=== PATIENT | female | born 1960 | race African-American/Black ===

== ENCOUNTER 2017-06-19 09:33 | Emergency (ER) | payer MEDICAID, OTHER ==
[2017-06-19] MEDS ORDERED: NS 1000 ML 1,000 ML IV ONE ×2 (09:41→13:34)
[2017-06-19] MEDS ORDERED: ZOFRAN INJ 4 MG VIAL IVP ONE ×2 (09:41→12:09)
--- NOTE | 2017-06-19 09:45 | DR.NAUSEAF ---
HPI - Reviewed Nurses Notes Reviewed: Yes - Source History Provided: Parent - Mode of Arrival Mode of Arrival: Stretcher - Context Onset: Spontaneous Recent: None History of: Diabetes - Quality Quality: Bilious - Associated Signs and Symptoms Abdominal Pain Quality: Cramping Abdominal Pain Location: Diffuse Symptoms: Abdominal Pain, Diarrhea, Anorexia PMH - PMH Past Medical History: Asthma, Diabetes, GERD, Hypertension, Sleep Apnea Past Surgical History: Yes Surgical History: Hysterectomy - Family History Family Medical History: Diabetes Mellitus, Coronary Artery Disease, Hypertension - Social History Do you use any recreational Drugs:: No ROS - Review of Systems Constitutional: Weakness, Fatigue, Loss of Appetite. negative: Chills Eyes: No Symptoms Reported. negative: Eye Pain, Discharge ENTM: Ear Pain, Nose Discharge, Nose Congestion, Throat Pain Respiratoy: Moist Cough, Wheezing Cardiovascular: No Symptoms Reported Gastrointestinal/Abdominal: Vomiting (MAINLY MUCOUS) Genitourinary: No Symptoms Reported Neurological: No Symptoms Reported Musculoskeletal: No Symptoms Reported Integumentary: No Symptoms Reported Hematologic/Lymphatic: No Symptoms Reported Endocrine: No Symptoms Reported All Other Systems: Reviewed and Negative PE - Vital Signs Vitals: Temperature 96.9 F Pulse Rate [Left Brachial] 55 Pulse Rate 82 Respiratory Rate 18 Blood Pressure [Right Arm] 166/72 Blood Pressure [Left Arm] 181/83 Blood Pressure 146/72 O2 Sat by Pulse Oximetry 100 - General Limitations: No Limitations General Appearance: Alert - Head Head Exam: Normal Inspection - Eyes Eye exam: Normal Appearance - ENT ENT Exam: Normal External Ear Exam - Neck Neck Exam: Trachea Midline - Chest Chest Inspection: Symmetric Chest Wall Rise - Respiratory Respiratory Exam: Normal Lung Sounds Bilat Respiratory Exam: Bilateral Clear to Auscultation - Cardiovascular Cardiovascular Exam: Regular Rate, Normal Rhythm, Normal Heart Sounds - Abdominal Exam Abdominal Exam: Normal Bowel Sounds, Soft, Tenderness Abdominal Tenderness: Diffuse, Moderate - Rectal Rectal Exam: Deferred - External Exam: Female: Deferred : Speculum Exam (Female): Deferred : Bimanual Exam (female): Deferred - Extremities Extremities Exam: Normal Inspection - Back Back Exam: Normal Inspection - Neurologic Neurological Exam: Alert, Oriented X3 - Psychiatric Psychiatric Exam: Normal Affect, Normal Mood - Skin Skin Exam: Normal Color ROR - Labs Reviewed Result Diagrams: 06/19/17 10:00 06/19/17 10:00 Laboratory: 06/19/17 09:53 Stool - Final WBC 13.6 X10^3/uL (3.6-10.0) H 06/19/17 10:00 RBC 5.65 X10^6/uL (3.5-5.4) H 06/19/17 10:00 Hgb 14.4 g/dL (12.0-16.0) 06/19/17 10:00 Hct 44.4 % (36.0-47.0) 06/19/17 10:00 MCV 78.6 fL (80.0-100.0) L 06/19/17 10:00 MCH 25.5 pg (27.0-34.0) L 06/19/17 10:00 MCHC 32.5 g/dL (33.0-35.0) L 06/19/17 10:00 RDW 14.5 % (11.6-16.5) 06/19/17 10:00 Plt Count 195 X10^3/uL (150.0-450.0) 06/19/17 10:00 Plt Count Comment Adequate (ADEQUATE) 06/19/17 10:00 MPV 10.5 fL (7.4-11.0) 06/19/17 10:00 Neut % 77.9 % (42.0-75.0) H 06/19/17 10:00 Lymph % 16.9 % (21.0-51.0) L 06/19/17 10:00 Lamar % 4.2 % (0.0-13.0) 06/19/17 10:00 Eos % 0.3 % (0.9-2.9) L 06/19/17 10:00 Baso % 0.7 % (0.2-1.0) 06/19/17 10:00 Neut # 10.6 x10^3/uL (2.2-4.8) H 06/19/17 10:00 Lymph # 2.3 X10^3/uL (1.3-2.9) 06/19/17 10:00 Lamar # 0.6 x10^3/uL (0.3-0.8) 06/19/17 10:00 Eos # 0.0 x10^3/uL (0.0-0.2) 06/19/17 10:00 Baso # 0.1 X10^3/uL (0.0-0.1) 06/19/17 10:00 Absolute Nucleated RBC 0.0 /100WBC 06/19/17 10:00 Plt Morphology Comment Normal (NORMAL) 06/19/17 10:00 RBC Morphology Abnormal (NORMAL) A 06/19/17 10:00 Microcytosis Slight A 06/19/17 10:00 Sodium 142 mmol/L (136-145) 06/19/17 10:00 Corrected Sodium 145 mmol/L (136-145) 06/19/17 10:00 Potassium 3.2 mmol/L (3.5-5.1) L 06/19/17 10:00 Chloride 106 mmol/L (98-107) 06/19/17 10:00 Carbon Dioxide 23.6 mmol/L (21-32) 06/19/17 10:00 BUN 38 mg/dL (7-18) H 06/19/17 10:00 Creatinine 1.40 mg/dL (0.55-1.02) H 06/19/17 10:00 Est GFR (MDRD) Af Amer 50 (>60) L 06/19/17 10:00 Est GFR (MDRD) Non-Af 42 (>60) L 06/19/17 10:00 Glucose 219 mg/dL (65-99) H 06/19/17 10:00 Calcium 9.3 mg/dL (8.5-10.1) 06/19/17 10:00 Corrected Calcium TNP 06/19/17 10:00 Total Bilirubin 0.50 mg/dL (0.2-1.0) 06/19/17 10:00 AST 13 Units/L (15-37) L 06/19/17 10:00 ALT 17 Units/L (12-78) 06/19/17 10:00 Alkaline Phosphatase 114 Units/L (46-116) 06/19/17 10:00 Total Protein 8.1 g/dL (6.4-8.2) 06/19/17 10:00 Albumin 3.7 g/dL (3.4-5.0) 06/19/17 10:00 Globulin 4.4 g/dL (2.5-4.5) 06/19/17 10:00 Albumin/Globulin Ratio 0.8 Ratio (1.1-2.1) L 06/19/17 10:00 Amylase 88 Units/L (25-115) 06/19/17 10:00 Lipase 264 Units/L (73-393) 06/19/17 10:00 Stool Description 4g,loose,yellow 06/19/17 09:53 Stool for White Cells Negative (NEGATIVE) 06/19/17 09:53 Stl C. diff Tox B Gene Negative (NEGATIVE) 06/19/17 09:53 Stl C. diff 027-NAP1-BI Negative (NEGATIVE) 06/19/17 09:53 Cryptosporid parvum Ag Negative (NEGATIVE) 06/19/17 09:53 E. histolytica Antigen Negative (NEGATIVE) 06/19/17 09:53 Giardia lamblia Ag Negative (NEGATIVE) 06/19/17 09:53 - Discharge Plan Disposition: 01 HOME, SELF-CARE Condition: Stable Prescriptions: Diphenoxylate/Atropine [Lomotil] 1 tab PO TID PRN #21 tab PRN Reason: Ondansetron [Zofran ODT 8 mg] 8 mg PO Q8H PRN #12 tab PRN Reason: Nausea/Vomiting Promethazine HCl [PHENERGAN TAB 25 MG *] 25 mg PO Q8H PRN #12 tab PRN Reason: Nausea/Vomiting - Follow ups/Referrals Follow ups/Referrals: NFD,None [Primary Care Provider] - 06/21/17 - Instructions Instructions: Viral Gastroenteritis, Adult, [id number], Abdominal Pain, Adult , [id number] Additional Instructions: RETURN TO ED IF WORSE.
[2017-06-19 09:47] VITALS: BMI 34.3
[2017-06-19] MEDS ORDERED: ZOFRAN INJ 4 MG VIAL ONE ×2 (09:50→12:09)
[2017-06-19 10:18] LABS: BASOPHILS # (AUTO) 0.1 X10^3/uL (0.0-0.1); BASOPHILS % (AUTO) 0.7 % (0.2-1.0); EOSINOPHILS % (AUTO) 0.3 % (0.9-2.9); HEMATOCRIT 44.4 % (36.0-47.0); HEMOGLOBIN 14.4 g/dL (12.0-16.0); LYMPHOCYTES # (AUTO) 2.3 X10^3/uL (1.3-2.9); LYMPHOCYTES % (AUTO) 16.9 % (21.0-51.0); MEAN CORPUSCULAR HEMOGLOBIN 25.5 pg (27.0-34.0); MEAN CORPUSCULAR HGB CONC 32.5 g/dL (33.0-35.0); MEAN CORPUSCULAR VOLUME 78.6 fL (80.0-100.0); MEAN PLATELET VOLUME 10.5 fL (7.4-11.0); MONOCYTES # (AUTO) 0.6 x10^3/uL (0.3-0.8); MONOCYTES % (AUTO) 4.2 % (0.0-13.0); NEUTROPHILS # (AUTO) 10.6 x10^3/uL (2.2-4.8); NEUTROPHILS % (AUTO) 77.9 % (42.0-75.0); PLATELET COUNT 195 X10^3/uL (150.0-450.0); RED BLOOD COUNT 5.65 X10^6/uL (3.5-5.4); RED CELL DISTRIBUTION WIDTH 14.5 % (11.6-16.5); WHITE BLOOD COUNT 13.6 X10^3/uL (3.6-10.0)
[2017-06-19 10:30] LABS: MICROCYTOSIS SLIGHT; PLATELET MORPHOLOGY COMMENT NORMAL (NORMAL)
[2017-06-19 10:39] LABS: ALANINE AMINOTRANSFERASE 17 Units/L (12-78); ALBUMIN 3.7 g/dL (3.4-5.0); ALKALINE PHOSPHATASE 114 Units/L (46-116); AMYLASE 88 Units/L (25-115); ASPARTATE AMINO TRANSFERASE 13 Units/L (15-37); BLOOD UREA NITROGEN 38 mg/dL (7-18); CALCIUM 9.3 mg/dL (8.5-10.1); CARBON DIOXIDE 23.6 mmol/L (21-32); CHLORIDE 106 mmol/L (98-107); COR NA(FOR HYPERGLY) 145 mmol/L (136-145); LIPASE 264 Units/L (73-393); SODIUM 142 mmol/L (136-145); TOTAL PROTEIN 8.1 g/dL (6.4-8.2); eGFR BLACK RACES 50 (>60); eGFR NON BLACK RACES 42 (>60)
[2017-06-19 11:08] LABS: CRYPTOSPORIDIUM PARVUM ANTIGEN NEGATIVE (NEGATIVE); GIARDIA LAMBLIA ANTIGEN NEGATIVE (NEGATIVE); STOOL FOR WBC NEGATIVE (NEGATIVE)
[2017-06-19] MEDS ORDERED: LOMOTIL PO ONE (11:53)
[2017-06-19] MEDS ORDERED: K-LYTE EFFERVESCENT PO ONE (11:55)
[2017-06-19] MEDS ORDERED: K-LYTE EFFERVESCENT ONE (12:09)
[2017-06-19] MEDS ORDERED: LOMOTIL ONE (12:10)
--- NOTE | 2017-06-19 12:51 | RAD ---
Examination: Abdomen series with PA chest History: Nausea and vomiting, diabetes Comparison reference: 01/13/2015 Findings: PA chest: Normal heart size with clear lungs and pleural spaces. There is no evidence for p leural fluid or pneumoperitoneum. There are surgical clips in the neck. In the abdomen, supine and up right views demonstrate scattered segments of gas and fluid distended small bowel and colon. A few sh ort air-fluid levels are seen. There is no evidence for ascites, mass or pneumoperitoneum. There are surgical clips in the right upper abdomen. Impression: 1. Normal PA chest. 2. Intestinal gas pattern most consistent with a reflex ileus. However, follow-up imaging recommended if developing intestinal ischemia or obstruction is a clinical concern. Reported By:
[2017-06-19] MEDS ORDERED: PHENERGAN INJ 25 MG IV ONE (13:34)
[2017-06-19] MEDS ORDERED: PHENERGAN INJ 25 MG ONE (13:35)
[2017-06-19] MEDS ORDERED: NS 1000 ML 1,000 ML ONE (13:35)
--- NOTE | 2017-06-19 14:40 | CT ---
HISTORY: Nausea/vomiting/diarrhea/mid epigastric pain. Prior history of hypertension, diabetes, COPD, asthma and cholecystectomy. Study: CT abdomen and pelvis without IV or oral contrast Comparison: 12/08/2013. Technique: Multiple axial images of the abdomen and pelvis were obtained from the lung bases to the pubic symphy sis without the administration of IV or oral contrast. Coronal and sagittal images are also reviewed . Dose reduction techniques utilized automatic exposure control. Findings: The visualized portions of the lung bases are unremarkable. The liver, spleen, pancreas, kidneys, an d adrenal glands are unremarkable in their CT appearance. The gallbladder surgically absent.. No sig nificant mesenteric lymphadenopathy or stranding can be observed. No free fluid or free air is seen within the abdomen. No bowel wall thickening or bowel dilatation is present. The appendix is normal. The colon is unremarkable. Specifically, there is no diverticulosis noted within the sigmoid colon. Uterus and ovaries are not identified and may be surgically absent also. The urinary bladder is hoda sly unremarkable. There is again very mild sclerosis along the upper endplate at L4. This is unchang ed from prior studies. IMPRESSION: No acute abnormality seen. Reported By:
[2017-06-19 15:49] VITALS: BP 166/72
== END 2017-06-19 16:10 | disposition home or self-care (01) ==
LOC: ER 09:36
DX: A08.4 Viral intestinal infection, unspecified (principal); R10.84 Generalized abdominal pain
CPT/HCPCS: 36415; 74022; 74176; 80053; 82150; 83630; 83690; 85025; 87045; 87328; 87329; 87336; 87427; 87493; 87899; 96365; 96367; 96374; 96375; 99282; 99283; J2405; J2550

== ENCOUNTER 2017-07-22 19:21 | Emergency (ER) | payer MEDICAID ==
[2017-07-22 19:30] VITALS: BMI 41.4
--- NOTE | 2017-07-22 19:47 | DR.GENAD ---
HPI - PCP Primary Care Physician: bryan - HPI Comment HPI Comment: PATIENT HAD EGD AND COLONOSCOPY DONE RECENTLY. WAS GIVEN CARAFATE AND CHOLESTRAMINE WHICH IS MAKING HER FEEL SICK TO HER STOMACH. PAIN IN RT FLANK AREA WELL. HAVING WATERY DIARRHEA. NO FEVER. - Complaint/Symptoms Chief Complaint Doctors Comments: N/V/D AND ANDOMINAL AND LOWER RIB PAIN TIMES SEVERAL DAYS. Chief Complaint:: n/v/d since wednesday, rt flank pain since last night. i had a egd and colonoscopy done day before and the wednesday after and they gave meds to take said something with wrong with the layer of my colon. the meds are just making me sicker. i need something for this throwing up. everytime i take a breath my ribs are killling me bc of all this throwing up. Self Treatment fo Chief Complaint: carafate susp 1 gram/10cc 1 tsp 30 mins before meals and cholestryramine susp - Nurses notes reviewed Nurses Notes Review: Yes - Source History Provided: Patient - Mode of Arrival Mode of Arrival: Ambulatory - Timing Onset of Chief Complaint: 07/20/17 Came on: Gradually - Duration Duration: Constant Duration: Days - Severity Severity: Moderate PMH - PMH Past Medical History: Yes Past Medical History: Asthma, Diabetes, GERD, Hypertension, Sleep Apnea Past Surgical History: Yes Surgical History: Hysterectomy - Family History History of Family Medical Conditions: Yes Family Medical History: Diabetes Mellitus, Coronary Artery Disease, Hypertension - Social History Does patient currently use any type of tobacco product: No Have you used tobacco products in the last 12 months: No Type of Tobacco Use: None Does any household member use tobacco: No Alcohol Use: None Do you use any recreational Drugs:: No Lives With: Family Lives Where: Home - infectious screening Have you traveled outside the country in the last 6 months?: No Isolation: Standard ROS - Review of Systems Constitutional: Weakness, Fatigue, Loss of Appetite. negative: Chills, Diaphoresis Eyes: No Symptoms Reported. negative: Eye Pain, Discharge ENTM: No Symptoms Reported. negative: Ear Pain, Nose Discharge, Nose Congestion , Throat Pain Respiratoy: No Symptoms Reported. negative: Productive Cough, Short of Breath, Wheezing, Hemoptysis Cardiovascular: No Symptoms Reported Gastrointestinal/Abdominal: Abdominal Pain, Diarrhea, Nausea, Vomiting Genitourinary: No Symptoms Reported Neurological: Weakness, Dizziness Musculoskeletal: Muscle Pain Integumentary: No Symptoms Reported Hematologic/Lymphatic: No Symptoms Reported Endocrine: No Symptoms Reported All Other Systems: Reviewed and Negative PE - Vital Signs Vitals: Temperature 97.1 F Pulse Rate [Right Brachial] 72 Pulse Rate 92 Respiratory Rate 18 Blood Pressure [Right Arm] 128/65 Blood Pressure [Left Arm] 181/83 Blood Pressure 175/90 O2 Sat by Pulse Oximetry 98 - General Limitations: No Limitations General Appearance: Alert - Head Head Exam: Normal Inspection - Eyes Eye exam: Normal Appearance - ENT ENT Exam: Normal External Ear Exam External Ear Exam: Normal External Inspection TM/Canal Exam: Bilateral Normal Nose Exam: Normal Nose Exam Mouth Exam: Normal Inspection Throat Exam: Normal Inspection - Neck Neck Exam: Trachea Midline - Chest Chest Inspection: Symmetric Chest Wall Rise - Respiratory Respiratory Exam: Normal Lung Sounds Bilat Respiratory Exam: Bilateral Rhonchi, Lower Rhonchi - Cardiovascular Cardiovascular Exam: Regular Rate, Normal Rhythm, Normal Heart Sounds - Abdominal Exam Abdominal Exam: Normal Bowel Sounds, Soft, Tenderness Abdominal Tenderness: Diffuse, Moderate - Extremities Extremities Exam: Normal Inspection - Back Back Exam: Normal Inspection - Neurologic Neurological Exam: Alert, Oriented X3 - Psychiatric Psychiatric Exam: Anxious - Skin Skin Exam: Normal Color MDM - Differential Diagnosis Differential Diagnosis: ABD PAIN, BOWEL OBTRUCTION, UTI, KIDNEY STONE Course - Treatment Treatment: SEE ORDERS. - Education/Counseling Education/Counseling: Patient, Education Educated On: Diagnosis, Needs for Follow Up ROR - Labs Reviewed Laboratory Results Reviewed?: Yes Result Diagrams: 07/22/17 20:16 07/22/17 20:16 Laboratory: 07/22/17 20:34 Stool Stool Culture - Final 07/22/17 20:34 Stool - Final WBC 14.5 X10^3/uL (3.6-10.0) H 07/22/17 20:16 RBC 5.78 X10^6/uL (3.5-5.4) H 07/22/17 20:16 Hgb 14.8 g/dL (12.0-16.0) 07/22/17 20:16 Hct 45.7 % (36.0-47.0) 07/22/17 20:16 MCV 79.0 fL (80.0-100.0) L 07/22/17 20:16 MCH 25.6 pg (27.0-34.0) L 07/22/17 20:16 MCHC 32.4 g/dL (33.0-35.0) L 07/22/17 20:16 RDW 14.5 % (11.6-16.5) 07/22/17 20:16 Plt Count 261 X10^3/uL (150.0-450.0) 07/22/17 20:16 Plt Count Comment Adequate (ADEQUATE) 07/22/17 20:16 MPV 10.0 fL (7.4-11.0) 07/22/17 20:16 Neut % 74.3 % (42.0-75.0) 07/22/17 20:16 Lymph % 20.2 % (21.0-51.0) L 07/22/17 20:16 [place] % 4.3 % (0.0-13.0) 07/22/17 20:16 Eos % 0.5 % (0.9-2.9) L 07/22/17 20:16 Baso % 0.7 % (0.2-1.0) 07/22/17 20:16 Neut # 10.8 x10^3/uL (2.2-4.8) H 07/22/17 20:16 Lymph # 2.9 X10^3/uL (1.3-2.9) 07/22/17 20:16 [place] # 0.6 x10^3/uL (0.3-0.8) 07/22/17 20:16 Eos # 0.1 x10^3/uL (0.0-0.2) 07/22/17 20:16 Baso # 0.1 X10^3/uL (0.0-0.1) 07/22/17 20:16 Absolute Nucleated RBC 0.0 /100WBC 07/22/17 20:16 Plt Morphology Comment Normal (NORMAL) 07/22/17 20:16 RBC Morphology Abnormal (NORMAL) A 07/22/17 20:16 Hypochromasia Slight A 07/22/17 20:16 Poikilocytosis Slight A 07/22/17 20:16 [place] Cells Present 07/22/17 20:16 Sodium 143 mmol/L (136-145) 07/22/17 20:16 Corrected Sodium 144 mmol/L (136-145) 07/22/17 20:16 Potassium 3.2 mmol/L (3.5-5.1) L 07/22/17 20:16 Chloride 107 mmol/L (98-107) 07/22/17 20:16 Carbon Dioxide 24.4 mmol/L (21-32) 07/22/17 20:16 BUN 20 mg/dL (7-18) H 07/22/17 20:16 Creatinine 1.05 mg/dL (0.55-1.02) H 07/22/17 20:16 Est GFR (MDRD) Af Amer > 60 (>60) 07/22/17 20:16 Est GFR (MDRD) Non-Af 58 (>60) L 07/22/17 20:16 Glucose 121 mg/dL (65-99) H 07/22/17 20:16 Calcium 9.0 mg/dL (8.5-10.1) 07/22/17 20:16 Corrected Calcium TNP 07/22/17 20:16 Total Bilirubin 0.40 mg/dL (0.2-1.0) 07/22/17 20:16 AST 18 Units/L (15-37) 07/22/17 20:16 ALT 24 Units/L (12-78) 07/22/17 20:16 Alkaline Phosphatase 122 Units/L (46-116) H 07/22/17 20:16 Total Protein 8.4 g/dL (6.4-8.2) H 07/22/17 20:16 Albumin 3.8 g/dL (3.4-5.0) 07/22/17 20:16 Globulin 4.6 g/dL (2.5-4.5) H 07/22/17 20:16 Albumin/Globulin Ratio 0.8 Ratio (1.1-2.1) L 07/22/17 20:16 Amylase 61 Units/L (25-115) 07/22/17 20:16 Lipase 129 Units/L (73-393) 07/22/17 20:16 Specimen Type Clean catch urine 07/23/17 01:20 Urine Color Yellow (YELLOW) 07/23/17 01:20 Urine Appearance Clear (CLEAR) 07/23/17 01:20 Urine pH 5.0 (5.0 - 8.0) 07/23/17 01:20 Ur Specific Mel[place] 1.015 (1.000-1.030) 07/23/17 01:20 Urine Protein 2+ (NEGATIVE) 07/23/17 01:20 Urine Glucose (UA) Negative (NEGATIVE) 07/23/17 01:20 Urine Ketones Negative (NEGATIVE) 07/23/17 01:20 Urine Occult Blood Negative (NEGATIVE) 07/23/17 01:20 Urine Nitrite Negative (NEGATIVE) 07/23/17 01:20 Urine Bilirubin Negative (NEGATIVE) 07/23/17 01:20 Urine Urobilinogen Normal (NORMAL) 07/23/17 01:20 Ur Leukocyte Esterase Negative (NEGATIVE) 07/23/17 01:20 Urine RBC Rare /HPF (NEGATIVE) 07/23/17 01:20 Urine WBC None seen /HPF (NEGATIVE) 07/23/17 01:20 Ur Squamous Epith Cells Rare /HPF (NEGATIVE) 07/23/17 01:20 Urine Bacteria Negative /HPF (NEGATIVE) 07/23/17 01:20 Hyaline Casts Few /LPF (NEGATIVE) 07/23/17 01:20 Urine Mucus Few /HPF (NEGATIVE) 07/23/17 01:20 Ur Culture Indicated? No/not indicated 07/23/17 01:20 Stool Description 75 g. luna/liquid 07/22/17 20:34 Stool for White Cells Negative (NEGATIVE) 07/22/17 20:46 Stl C. diff Tox B Gene Negative (NEGATIVE) 07/22/17 20:46 Stl C. diff 027-NAP1-BI Negative (NEGATIVE) 07/22/17 20:46 Cryptosporid parvum Ag Negative (NEGATIVE) 07/22/17 20:34 E. histolytica Antigen Negative (NEGATIVE) 07/22/17 20:34 Giardia lamblia Ag Negative (NEGATIVE) 07/22/17 20:34 - XRAY XRAY Interpreted by: Radiologist XRAY Findings: REPORT DISCUSS WITH PATIENT. - Diagnosis Discharge Problem: Gastroenteritis, Nausea Abdominal pain Qualifiers: Abdominal location: generalized Qualified Code(s): R10.84 - Generalized abdominal pain - Discharge Plan Disposition: 01 HOME, SELF-CARE Condition: Stable Prescriptions: Ciprofloxacin HCl [CIPRO 500 MG TAB *] 500 mg PO Q12H #20 tab Ondansetron [Zofran ODT 8 mg] 8 mg PO Q8H PRN #15 tab PRN Reason: Nausea/Vomiting - Follow ups/Referrals Follow ups/Referrals: NFD,None [Primary Care Provider] - 3 days - Instructions Instructions: Nausea, Adult, Viral Gastroenteritis, Adult, [id number], Abdominal Pain, Adult, [id number]
[2017-07-22] MEDS ORDERED: ZOFRAN INJ 4 MG VIAL IVP ONE (19:58)
[2017-07-22] MEDS ORDERED: NS 1000 ML 1,000 ML IV ONE ×2 (19:58→22:21)
[2017-07-22] MEDS ORDERED: MORPHINE SULFATE INJ 4 MG IVP ONE (19:58)
[2017-07-22] MEDS ORDERED: NS 1000 ML 1,000 ML ONE ×2 (20:03→22:18)
[2017-07-22] MEDS ORDERED: ZOFRAN INJ 4 MG VIAL ONE (20:03)
[2017-07-22] MEDS ORDERED: MORPHINE SULFATE INJ 4 MG ONE (20:04)
[2017-07-22 20:25] LABS: BASOPHILS # (AUTO) 0.1 X10^3/uL (0.0-0.1); BASOPHILS % (AUTO) 0.7 % (0.2-1.0); EOSINOPHILS # (AUTO) 0.1 x10^3/uL (0.0-0.2); EOSINOPHILS % (AUTO) 0.5 % (0.9-2.9); HEMATOCRIT 45.7 % (36.0-47.0); HEMOGLOBIN 14.8 g/dL (12.0-16.0); LYMPHOCYTES # (AUTO) 2.9 X10^3/uL (1.3-2.9); LYMPHOCYTES % (AUTO) 20.2 % (21.0-51.0); MEAN CORPUSCULAR HEMOGLOBIN 25.6 pg (27.0-34.0); MEAN CORPUSCULAR HGB CONC 32.4 g/dL (33.0-35.0); MONOCYTES # (AUTO) 0.6 x10^3/uL (0.3-0.8); MONOCYTES % (AUTO) 4.3 % (0.0-13.0); NEUTROPHILS # (AUTO) 10.8 x10^3/uL (2.2-4.8); NEUTROPHILS % (AUTO) 74.3 % (42.0-75.0); PLATELET COUNT 261 X10^3/uL (150.0-450.0); RED BLOOD COUNT 5.78 X10^6/uL (3.5-5.4); RED CELL DISTRIBUTION WIDTH 14.5 % (11.6-16.5); WHITE BLOOD COUNT 14.5 X10^3/uL (3.6-10.0)
[2017-07-22 20:34] LABS: ALANINE AMINOTRANSFERASE 24 Units/L (12-78); ALBUMIN 3.8 g/dL (3.4-5.0); ALKALINE PHOSPHATASE 122 Units/L (46-116); AMYLASE 61 Units/L (25-115); ASPARTATE AMINO TRANSFERASE 18 Units/L (15-37); BLOOD UREA NITROGEN 20 mg/dL (7-18); CARBON DIOXIDE 24.4 mmol/L (21-32); CHLORIDE 107 mmol/L (98-107); COR NA(FOR HYPERGLY) 144 mmol/L (136-145); CREATININE 1.05 mg/dL (0.55-1.02); LIPASE 129 Units/L (73-393); SODIUM 143 mmol/L (136-145); TOTAL PROTEIN 8.4 g/dL (6.4-8.2); eGFR BLACK RACES > 60 (>60); eGFR NON BLACK RACES 58 (>60)
[2017-07-22 20:40] LABS: BURR CELLS PRESENT; HYPOCHROMASIA SLIGHT; PLATELET MORPHOLOGY COMMENT NORMAL (NORMAL); POIKILOCYTOSIS SLIGHT
[2017-07-22] MEDS ORDERED: K-LYTE EFFERVESCENT PO ONE (21:35)
[2017-07-22 22:00] LABS: STOOL FOR WBC NEGATIVE (NEGATIVE)
--- NOTE | 2017-07-22 22:12 | RAD ---
ACUTE ABDOMINAL SERIES CLINICAL HISTORY: 56-year-old female with nausea, vomiting and diarrhea since Wednesday with right flan k pain. Patient recently had EGD and colonoscopy. COMPARISON: None. FINDINGS: PA chest radiograph demonstrates normal cardiopericardial silhouette. There is no focal consolidation , pleural effusion or pneumothorax. Pulmonary vascularity is normal. Abdominal radiographs demonstrate multiple dilated air-filled loops of small bowel within the left up per quadrant measuring up to 5.7 cm with air-fluid levels on upright imaging. Gas and stool are seen throughout the colon. There is no small bowel distention. There is no radiographic evidence of pneumo peritoneum. Imaged osseous structures are intact. Soft tissues are unremarkable. IMPRESSION: 1. No acute cardiopulmonary process. 2. Findings concerning for small bowel obstruction, CT abdomen and pelvis with contrast is recommende d for complete evaluation. Reported By:
[2017-07-22 22:21] LABS: CRYPTOSPORIDIUM PARVUM ANTIGEN NEGATIVE (NEGATIVE); GIARDIA LAMBLIA ANTIGEN NEGATIVE (NEGATIVE)
[2017-07-22] MEDS ORDERED: PHENERGAN INJ 25 MG IV ONE (22:21)
[2017-07-22] MEDS ORDERED: PHENERGAN INJ 25 MG ONE (22:22)
--- NOTE | 2017-07-23 01:34 | CT ---
CT abdomen and pelvis with contrast Indication: Nausea and vomiting with right flank pain Comparison: 06/19/17 Technique: Multiple axial images of the abdomen and pelvis were obtained from the lung bases to the pubic symphy sis after the administration of IV contrast. Findings: Lung bases are clear. The liver demonstrates focal hypoattenuation/decreased enhancement within the m edial aspect of the anterior pack segment adjacent to gallbladder fossa on axial image 27 similar flor or examination dated 12/08/2013. No new hepatic lesion identified. Previous cholecystectomy is noted. Bile ducts are normal in caliber. The spleen, pancreas and adrenal glands are normal. Neither kidney demonstrates evidence of nephrolithiasis, hydronephrosis or mass. Upper GI tract demonstrates mild f luid distention and mucosal enhancement within proximal mid loops of small bowel. There is no dilatat ion or distal decompression identified to suggest obstruction. Urinary bladder is normal. No pelvic o r adnexal mass. The rectum and colon demonstrate mild distal colonic diverticulosis without evidence acute diverticulitis. Mild increased fluid distention of the proximal colon. The appendix is normal. Abdominal aorta is normal in caliber. No enlarged abdominal or pelvic lymphadenopathy. Review of bone windows demonstrates no acute osseous abnormality. Impression: 1.Mild increased fluid distention and mucosal enhancement of the proximal mid small bowel with increa sed fluid within the proximal colon most consistent with an acute enteritis and likely associated concha rrhea. 2. The appendix is normal. 3. Stable incidental findings as described above. Reported By:
[2017-07-23 01:37] LABS: BILIRUBIN,URINE NEGATIVE (NEGATIVE); BLOOD/HEMOGLOBIN,URINE NEGATIVE (NEGATIVE); GLUCOSE, URINE NEGATIVE (NEGATIVE); KETONES,URINE NEGATIVE (NEGATIVE); LEUKOCYTE ESTERASE ,URINE NEGATIVE (NEGATIVE); NITRITES,URINE NEGATIVE (NEGATIVE); PROTEIN,URINE 2+ (NEGATIVE); UROBILINOGEN,URINE NORMAL (NORMAL)
[2017-07-23] MEDS ORDERED: K-LYTE EFFERVESCENT ONE (01:46)
[2017-07-23] MEDS ORDERED: CATAPRES TAB 0.1 MG PO ONE (02:02)
[2017-07-23 02:03] LABS: APPEARANCE,URINE CLEAR (CLEAR); BACTERIA,URINE NEGATIVE /HPF (NEGATIVE); COLOR,URINE YELLOW (YELLOW); HYALINE CASTS, URINE FEW /LPF (NEGATIVE); MUCUS,URINE FEW /HPF (NEGATIVE); RBC,URINE RARE /HPF (NEGATIVE); SQUAMOUS EPITHELIAL CELL,UR RARE /HPF (NEGATIVE)
[2017-07-23] MEDS ORDERED: CATAPRES TAB 0.1 MG ONE (02:10)
[2017-07-23 02:50] VITALS: BP 128/65
== END 2017-07-23 02:50 | disposition home or self-care (01) ==
LOC: ER 19:37
DX: K52.89 Other specified noninfective gastroenteritis and colitis (principal); R11.0 Nausea; R10.84 Generalized abdominal pain
CPT/HCPCS: 36415; 74022; 74177; 80053; 81001; 82150; 83630; 83690; 85025; 87045; 87328; 87329; 87336; 87427; 87493; 87899; 96365; 96367; 96374; 96375; 99282; 99283; A4222; J2270; J2405; J2550

== ENCOUNTER 2017-08-21 09:56 | Emergency (ER) | payer MEDICAID ==
[2017-08-21 10:00] VITALS: BP 160/72; BMI 43.4
--- NOTE | 2017-08-21 10:37 | DR.GENAD ---
HPI - PCP Primary Care Physician: NFD - Complaint/Symptoms Chief Complaint Doctors Comments: Patient presents to the ED with complaint of hitting her left mid thigh against the door a couple of days ago. Today her leg is hurting. Chief Complaint:: "Last week I ran into a door and hit my left leg. Now it is hurting" - Source History Provided: Patient - Mode of Arrival Mode of Arrival: Ambulatory - Timing Onset of Chief Complaint: 08/14/17 PMH - PMH Past Medical History: Yes Past Medical History: Asthma, Diabetes, GERD, Hypertension, Sleep Apnea Past Surgical History: Yes Surgical History: Hysterectomy - Family History History of Family Medical Conditions: Yes Family Medical History: Diabetes Mellitus, Coronary Artery Disease, Hypertension - Social History Does patient currently use any type of tobacco product: No Have you used tobacco products in the last 12 months: No Type of Tobacco Use: None Does any household member use tobacco: No Alcohol Use: None Do you use any recreational Drugs:: No Lives With: Alone Lives Where: Home - infectious screening In the last 2 months have you had wt loss of >10#?: NO Have you had fever, night sweats or hemotysis?: No Have you traveled outside the country in the last 6 months?: No Isolation: Standard ROS - Review of Systems Constitutional: No Symptoms Reported Eyes: No Symptoms Reported ENTM: No Symptoms Reported Respiratoy: No Symptoms Reported Cardiovascular: No Symptoms Reported Gastrointestinal/Abdominal: No Symptoms Reported Genitourinary: No Symptoms Reported Neurological: No Symptoms Reported Musculoskeletal: No Symptoms Reported, Left (michelle thigh) Integumentary: No Symptoms Reported Hematologic/Lymphatic: No Symptoms Reported Endocrine: No Symptoms Reported Psychiatric: No Symptoms Reported All Other Systems: Reviewed and Negative PE - Vital Signs Vitals: Temperature 97.7 F Pulse Rate 82 Respiratory Rate 18 Blood Pressure [Right Arm] 128/65 Blood Pressure [Left Arm] 181/83 Blood Pressure 160/72 O2 Sat by Pulse Oximetry 100 - General Limitations: No Limitations General Appearance: Alert, In No Apparent Distress - Head Head Exam: Normal Inspection, Atraumatic - Eyes Eye exam: Normal Appearance, PERRL, EOMI - ENT ENT Exam: Normal Exam, Normal Oropharynx External Ear Exam: Normal External Inspection TM/Canal Exam: Bilateral Normal Nose Exam: Normal Nose Exam Mouth Exam: Normal Inspection Throat Exam: Normal Inspection - Neck Neck Exam: Normal Inspection, Full ROM - Chest Chest Inspection: Normal Inspection, Symmetric Chest Wall Rise - Respiratory Respiratory Exam: Normal Lung Sounds Bilat Respiratory Exam: Bilateral Clear to Auscultation - Cardiovascular Cardiovascular Exam: Regular Rate, Normal Rhythm - Abdominal Exam Abdominal Exam: Normal Inspection, Normal Bowel Sounds Abdominal Tenderness: negative: RUQ, RLQ, LUQ, LLQ, Epigastrium, Suprapubic, Diffuse, Mild, Moderate, Severe, Other - Extremities Extremities Exam: Normal Inspection, Tenderness (admits to tenderness mid lateral left thigh). negative: Edema - Neurologic Neurological Exam: Alert, Oriented X3, CN II-XII Intact - Psychiatric Psychiatric Exam: Normal Affect, Normal Mood - Skin Skin Exam: Warm, Dry, Intact ROR - Labs Reviewed Laboratory Results Reviewed?: Yes (D Dimer: [id number]) Result Diagrams: 08/21/17 10:25 08/21/17 10:25 Laboratory: WBC 9.2 X10^3/uL (3.6-10.0) 08/21/17 10:25 RBC 4.87 X10^6/uL (3.5-5.4) 08/21/17 10:25 Hgb 12.8 g/dL (12.0-16.0) 08/21/17 10:25 Hct 38.8 % (36.0-47.0) 08/21/17 10:25 MCV 79.7 fL (80.0-100.0) L 08/21/17 10:25 MCH 26.3 pg (27.0-34.0) L 08/21/17 10:25 MCHC 33.0 g/dL (33.0-35.0) 08/21/17 10:25 RDW 14.8 % (11.6-16.5) 08/21/17 10:25 Plt Count 215 X10^3/uL (150.0-450.0) 08/21/17 10:25 MPV 10.3 fL (7.4-11.0) 08/21/17 10:25 Neut % 64.5 % (42.0-75.0) 08/21/17 10:25 Lymph % 27.4 % (21.0-51.0) 08/21/17 10:25 [place] % 4.8 % (0.0-13.0) 08/21/17 10:25 Eos % 1.8 % (0.9-2.9) 08/21/17 10:25 Baso % 1.5 % (0.2-1.0) H 08/21/17 10:25 Neut # 5.9 x10^3/uL (2.2-4.8) H 08/21/17 10:25 Lymph # 2.5 X10^3/uL (1.3-2.9) 08/21/17 10:25 [place] # 0.4 x10^3/uL (0.3-0.8) 08/21/17 10:25 Eos # 0.2 x10^3/uL (0.0-0.2) 08/21/17 10:25 Baso # 0.1 X10^3/uL (0.0-0.1) 08/21/17 10:25 Absolute Nucleated RBC 0.1 /100WBC 08/21/17 10:25 D-Dimer 751 ng/mL (0-400) H* 08/21/17 10:25 Sodium 143 mmol/L (136-145) 08/21/17 10:25 Corrected Sodium 144 mmol/L (136-145) 08/21/17 10:25 Potassium 3.8 mmol/L (3.5-5.1) 08/21/17 10:25 Chloride 108 mmol/L (98-107) H 08/21/17 10:25 Carbon Dioxide 24.9 mmol/L (21-32) 08/21/17 10:25 BUN 19 mg/dL (7-18) H 08/21/17 10:25 Creatinine 0.74 mg/dL (0.55-1.02) 08/21/17 10:25 Est GFR (MDRD) Af Amer > 60 (>60) 08/21/17 10:25 Est GFR (MDRD) Non-Af > 60 (>60) 08/21/17 10:25 Glucose 155 mg/dL (65-99) H 08/21/17 10:25 Calcium 9.1 mg/dL (8.5-10.1) 08/21/17 10:25 - XRAY XRAY Interpreted by: Radiologist (Venous US: The deep venous ststem of the left lower extremity was evaluated from the level of the common femoral vein through the popliteal vein. Normal color flow and augmentation can be observed. In addition, normal compression is seen throughout the deep venous ststem.) - Diagnosis Discharge Problem: Contusion, thigh Qualifiers: Encounter type: initial encounter Laterality: left Qualified Code(s): S70.12XA - Contusion of left thigh, initial encounter - Discharge Plan Condition: Stable - Follow ups/Referrals Follow ups/Referrals: NFD,None [Primary Care Provider] - 3 days - Instructions
[2017-08-21 10:55] LABS: BLOOD UREA NITROGEN 19 mg/dL (7-18); CALCIUM 9.1 mg/dL (8.5-10.1); CARBON DIOXIDE 24.9 mmol/L (21-32); CHLORIDE 108 mmol/L (98-107); COR NA(FOR HYPERGLY) 144 mmol/L (136-145); CREATININE 0.74 mg/dL (0.55-1.02); SODIUM 143 mmol/L (136-145); eGFR BLACK RACES > 60 (>60); eGFR NON BLACK RACES > 60 (>60)
[2017-08-21 11:00] LABS: BASOPHILS # (AUTO) 0.1 X10^3/uL (0.0-0.1); BASOPHILS % (AUTO) 1.5 % (0.2-1.0); EOSINOPHILS # (AUTO) 0.2 x10^3/uL (0.0-0.2); EOSINOPHILS % (AUTO) 1.8 % (0.9-2.9); HEMATOCRIT 38.8 % (36.0-47.0); HEMOGLOBIN 12.8 g/dL (12.0-16.0); LYMPHOCYTES # (AUTO) 2.5 X10^3/uL (1.3-2.9); LYMPHOCYTES % (AUTO) 27.4 % (21.0-51.0); MEAN CORPUSCULAR HEMOGLOBIN 26.3 pg (27.0-34.0); MEAN CORPUSCULAR VOLUME 79.7 fL (80.0-100.0); MEAN PLATELET VOLUME 10.3 fL (7.4-11.0); MONOCYTES # (AUTO) 0.4 x10^3/uL (0.3-0.8); MONOCYTES % (AUTO) 4.8 % (0.0-13.0); NEUTROPHILS # (AUTO) 5.9 x10^3/uL (2.2-4.8); NEUTROPHILS % (AUTO) 64.5 % (42.0-75.0); PLATELET COUNT 215 X10^3/uL (150.0-450.0); RED BLOOD COUNT 4.87 X10^6/uL (3.5-5.4); RED CELL DISTRIBUTION WIDTH 14.8 % (11.6-16.5); WHITE BLOOD COUNT 9.2 X10^3/uL (3.6-10.0)
[2017-08-21] MEDS ORDERED: TORADOL 60 MG VIAL IM ONE (11:30)
[2017-08-21] MEDS ORDERED: TORADOL 60 MG VIAL ONE (11:34)
--- NOTE | 2017-08-21 13:26 | VAS ---
HISTORY: Left lower extremity pain status post trauma Study: Left lower extremity venous Doppler ultrasound Comparison: 10/20/2015 TECHNIQUE: Multiple hanna scale and color flow Doppler images of the deep venous system were obtained of the left lower extremity. FINDINGS: The deep venous system of the left lower extremity was evaluated from the level of the common femoral vein through the popliteal vein. Normal color flow and augmentation can be observed. In addition, normal compression is seen throughout the deep venous system. IMPRESSION: 1. Negative for DVT. Reported By:
== END 2017-08-21 13:43 | disposition home or self-care (01) ==
LOC: ER 10:07
DX: S70.12XA Contusion of left thigh, initial encounter (principal); X58.XXXA Exposure to other specified factors, initial encounter; Y92.9 Unspecified place or not applicable
CPT/HCPCS: 36415; 80048; 85025; 85378; 93971; 96372; 99282; 99283; J1885

== ENCOUNTER 2017-08-23 15:16 | Observation (INO) | payer MEDICAID ==
--- NOTE | 2017-08-23 16:15 | DR.NAUSEAF ---
HPI - Primary Care Physician Primary Care Physician: HEVER MILLIGAN - Complaints Chief Complaint:: PT C/O NOT BEING ABLE TO KEEP ANYTHING DOWN SINCE 2 DAYS AGO WHEN SHE CAME TO THE ER AND GOT A PAIN SHOT.. PT C/O BEING WEAK AND NOT FEELING GOOD .. - Reviewed Nurses Notes Reviewed: Yes - Source History Provided: Patient - Mode of Arrival Mode of Arrival: Ambulatory - Timing Onset of Chief Complaint: 08/21/17 PMH - PMH Past Medical History: Yes Past Medical History: Asthma, Diabetes, Hypertension Past Surgical History: Yes Surgical History: Cholecystectomy, Hysterectomy, Tonsillectomy Past Surgical History Comment: THYROIDECTOMY, - Family History History of Family Medical Conditions: Yes Family Medical History: Diabetes Mellitus, Coronary Artery Disease, Hypertension - Social History Does patient currently use any type of tobacco product: No Have you used tobacco products in the last 12 months: No Type of Tobacco Use: None Does any household member use tobacco: No Alcohol Use: None Do you use any recreational Drugs:: No Lives With: Family Lives Where: Home - infectious screening In the last 2 months have you had wt loss of >10#?: NO Have you had fever, night sweats or hemotysis?: No Have you traveled outside the country in the last 6 months?: No Isolation: Standard ROS - Review of Systems Constitutional: Malaise ('just doesn't feel well'), Loss of Appetite Eyes: No Symptoms Reported ENTM: No Symptoms Reported, Nose Congestion Respiratoy: Non-Productive Cough Cardiovascular: negative: Chest Pain, Edema, Palpitations Gastrointestinal/Abdominal: Diarrhea, Nausea, Vomiting (vomiting everything she eats and copious watery diarrhea) Genitourinary: No Symptoms Reported Neurological: Headache Musculoskeletal: Joint Pain (diffuse), Muscle Pain Integumentary: No Symptoms Reported Hematologic/Lymphatic: No Symptoms Reported Endocrine: No Symptoms Reported Psychiatric: No Symptoms Reported All Other Systems: Reviewed and Negative PE - Vital Signs Vitals: Temperature 97.7 F Pulse Rate 80 Respiratory Rate 20 Blood Pressure [Right Arm] 128/65 Blood Pressure [Left Arm] 181/83 Blood Pressure 146/66 O2 Sat by Pulse Oximetry 97 - General Limitations: No Limitations General Appearance: Alert, In No Apparent Distress - Head Head Exam: Normal Inspection, Normocephalic - Eyes Eye exam: Normal Appearance - ENT ENT Exam: Normal Exam, Normal Oropharynx - Neck Neck Exam: Normal Inspection, Trachea Midline. negative: Tenderness, Meningismus, Lymphadenopathy - Respiratory Respiratory Exam: Normal Lung Sounds Bilat Respiratory Exam: Bilateral Clear to Auscultation - Cardiovascular Cardiovascular Exam: Regular Rate, Normal Rhythm, Normal Heart Sounds. negative : Systolic Murmur, Diastolic Murmur - Abdominal Exam Abdominal Exam: Normal Inspection, Normal Bowel Sounds, Soft, Tenderness (mild diffuse TTP, nothing focal). negative: Distention, Guarding, Rebound - Extremities Extremities Exam: Normal Inspection, Full ROM - Neurologic Neurological Exam: Alert, Oriented X3 - Psychiatric Psychiatric Exam: Normal Affect, Normal Mood - Skin Skin Exam: Warm, Dry, Intact ROR - Labs Reviewed Laboratory Results Reviewed?: Yes (lipase normal) Result Diagrams: 08/23/17 16:08/23/17 16: Laboratory: WBC 13.3 X10^3/uL (3.6-10.0) H 08/23/17 16: RBC 5.20 X10^6/uL (3.5-5.4) 08/23/17 16: Hgb 13.5 g/dL (12.0-16.0) 08/23/17 16: Hct 41.2 % (36.0-47.0) 08/23/17 16: MCV 79.3 fL (80.0-100.0) L 08/23/17 16: MCH 26.0 pg (27.0-34.0) L 08/23/17 16: MCHC 32.8 g/dL (33.0-35.0) L 08/23/17: RDW 14.8 % (11.6-16.5) 08/23/17: Plt Count 241 X10^3/uL (150.0-450.0) 08/23/17 16: MPV 9.8 fL (7.4-11.0) 08/23/17: Neut % 71.4 % (42.0-75.0) 08/23/17: Lymph % 22.1 % (21.0-51.0) 08/23/17 16: [place] % 5.4 % (0.0-13.0) 08/23/17: Eos % 0.5 % (0.9-2.9) L 08/23/17 16:28 Baso % 0.6 % (0.2-1.0) 08/23/17 16: Neut # 9.5 x10^3/uL (2.2-4.8) H 08/23/17 16:28 Lymph # 2.9 X10^3/uL (1.3-2.9) 08/23/17 16:28 [place] # 0.7 x10^3/uL (0.3-0.8) 08/23/17 16: Eos # 0.1 x10^3/uL (0.0-0.2) 08/23/17 16:28 Baso # 0.1 X10^3/uL (0.0-0.1) 08/23/17 16: Absolute Nucleated RBC 0.0 /100WBC 08/23/17 16:28 Sodium 140 mmol/L (136-145) 08/23/17 16: Corrected Sodium 141 mmol/L (136-145) 08/23/17 16:28 Potassium 3.3 mmol/L (3.5-5.1) L 08/23/17 16: Chloride 102 mmol/L (98-107) 08/23/17 16:28 Carbon Dioxide 32.1 mmol/L (21-32) H 08/23/17 16:28 BUN 22 mg/dL (7-18) H 08/23/17 16:28 Creatinine 0.91 mg/dL (0.55-1.02) 08/23/17 16:28 Est GFR (MDRD) Af Amer > 60 (>60) 08/23/17 16: Est GFR (MDRD) Non-Af > 60 (>60) 08/23/17 16:28 Glucose 141 mg/dL (65-99) H 08/23/17 16:28 Calcium 9.3 mg/dL (8.5-10.1) 08/23/17 16: Corrected Calcium TNP 08/23/17 16:28 Total Bilirubin 0.50 mg/dL (0.2-1.0) 08/23/17 16:28 AST 12 Units/L (15-37) L 08/23/17 16:28 ALT 14 Units/L (12-78) 08/23/17 16:28 Alkaline Phosphatase 96 Units/L (46-116) 08/23/17 16:28 Total Protein 7.5 g/dL (6.4-8.2) 08/23/17 16:28 Albumin 3.4 g/dL (3.4-5.0) 08/23/17 16:28 Globulin 4.1 g/dL (2.5-4.5) 08/23/17 16:28 Albumin/Globulin Ratio 0.8 Ratio (1.1-2.1) L 08/23/17 16:28 Lipase 143 Units/L (73-393) 08/23/17 16:28 Specimen Type Clean catch urine 08/23/17 17:14 Urine Color Yellow (YELLOW) 08/23/17 17:14 Urine Appearance Hazy (CLEAR) 08/23/17 17:14 Urine pH 5.0 (5.0 - 8.0) 08/23/17 17:14 Ur Specific [place] 1.025 (1.000-1.030) 08/23/17 17:14 Urine Protein 3+ (NEGATIVE) 08/23/17 17:14 Urine Glucose (UA) Negative (NEGATIVE) 08/23/17 17:14 Urine Ketones 1+ (NEGATIVE) 08/23/17 17:14 Urine Occult Blood 1+ (NEGATIVE) 08/23/17 17:14 Urine Nitrite Negative (NEGATIVE) 08/23/17 17:14 Urine Bilirubin 1+ (NEGATIVE) 08/23/17 17:14 Urine Urobilinogen 1+ (NORMAL) 08/23/17 17:14 Ur Leukocyte Esterase 1+ (NEGATIVE) 08/23/17 17:14 Urine RBC 0-2 /HPF (NEGATIVE) 08/23/17 17:14 Urine WBC 0-2 /HPF (NEGATIVE) 08/23/17 17:14 Ur Squamous Epith Cells Rare /HPF (NEGATIVE) 08/23/17 17:14 Urine Bacteria Negative /HPF (NEGATIVE) 08/23/17 17:14 Ur Culture Indicated? No/not indicated 08/23/17 17:14 Influenza Type A (PCR) Negative (NEGATIVE) 08/23/17 17:35 Influenza Type B (PCR) Negative (NEGATIVE) 08/23/17 17:35 - XRAY XRAY Findings: CT shows duodenitis vs groove pancreatitis, nothing else acute( lipase OK) - Discharge Plan Condition: Stable - Follow ups/Referrals Follow ups/Referrals: NFD,None [Primary Care Provider] - 3 days - Instructions
[2017-08-23] MEDS ORDERED: ZOFRAN INJ 4 MG VIAL IVP ONE (16:19)
[2017-08-23] MEDS ORDERED: NS 1000 ML 1,000 ML IV ONE (16:20)
[2017-08-23] MEDS ORDERED: ZOFRAN INJ 4 MG VIAL ONE (16:27)
[2017-08-23] MEDS ORDERED: NS 1000 ML 1,000 ML ONE (16:27)
[2017-08-23 16:40] LABS: BASOPHILS # (AUTO) 0.1 X10^3/uL (0.0-0.1); BASOPHILS % (AUTO) 0.6 % (0.2-1.0); EOSINOPHILS # (AUTO) 0.1 x10^3/uL (0.0-0.2); EOSINOPHILS % (AUTO) 0.5 % (0.9-2.9); HEMATOCRIT 41.2 % (36.0-47.0); HEMOGLOBIN 13.5 g/dL (12.0-16.0); LYMPHOCYTES # (AUTO) 2.9 X10^3/uL (1.3-2.9); LYMPHOCYTES % (AUTO) 22.1 % (21.0-51.0); MEAN CORPUSCULAR HGB CONC 32.8 g/dL (33.0-35.0); MEAN CORPUSCULAR VOLUME 79.3 fL (80.0-100.0); MEAN PLATELET VOLUME 9.8 fL (7.4-11.0); MONOCYTES # (AUTO) 0.7 x10^3/uL (0.3-0.8); MONOCYTES % (AUTO) 5.4 % (0.0-13.0); NEUTROPHILS # (AUTO) 9.5 x10^3/uL (2.2-4.8); NEUTROPHILS % (AUTO) 71.4 % (42.0-75.0); PLATELET COUNT 241 X10^3/uL (150.0-450.0); RED CELL DISTRIBUTION WIDTH 14.8 % (11.6-16.5); WHITE BLOOD COUNT 13.3 X10^3/uL (3.6-10.0)
[2017-08-23 16:50] LABS: ALANINE AMINOTRANSFERASE 14 Units/L (12-78); ALBUMIN 3.4 g/dL (3.4-5.0); ALKALINE PHOSPHATASE 96 Units/L (46-116); ASPARTATE AMINO TRANSFERASE 12 Units/L (15-37); BLOOD UREA NITROGEN 22 mg/dL (7-18); CALCIUM 9.3 mg/dL (8.5-10.1); CARBON DIOXIDE 32.1 mmol/L (21-32); CHLORIDE 102 mmol/L (98-107); COR NA(FOR HYPERGLY) 141 mmol/L (136-145); CREATININE 0.91 mg/dL (0.55-1.02); LIPASE 143 Units/L (73-393); SODIUM 140 mmol/L (136-145); TOTAL PROTEIN 7.5 g/dL (6.4-8.2); eGFR BLACK RACES > 60 (>60); eGFR NON BLACK RACES > 60 (>60)
[2017-08-23 17:33] LABS: BILIRUBIN,URINE 1+ (NEGATIVE); BLOOD/HEMOGLOBIN,URINE 1+ (NEGATIVE); GLUCOSE, URINE NEGATIVE (NEGATIVE); KETONES,URINE 1+ (NEGATIVE); LEUKOCYTE ESTERASE ,URINE 1+ (NEGATIVE); NITRITES,URINE NEGATIVE (NEGATIVE); PROTEIN,URINE 3+ (NEGATIVE); UROBILINOGEN,URINE 1+ (NORMAL)
[2017-08-23 17:46] LABS: APPEARANCE,URINE HAZY (CLEAR); COLOR,URINE YELLOW (YELLOW); RBC,URINE 0-2 /HPF (NEGATIVE)
[2017-08-23 17:48] LABS: SQUAMOUS EPITHELIAL CELL,UR RARE /HPF (NEGATIVE)
[2017-08-23 17:49] LABS: BACTERIA,URINE NEGATIVE /HPF (NEGATIVE)
[2017-08-23] MEDS ORDERED: NS 250 ML IV 250 ML IV ONE (18:23)
--- NOTE | 2017-08-23 19:12 | CT ---
CT ABDOMEN AND PELVIS WITH IV CONTRAST CLINICAL HISTORY: 56-year-old female with inability to keep anything down for 2 days. Patient complai ns of weakness and not feeling well. COMPARISON: CT abdomen and pelvis 07/23/2017. TECHNIQUE: Multiple contiguous axial images of the abdomen and pelvis were obtained following the adm inistration of IV contrast. Coronal and sagittal reformatted imaging was submitted. FINDINGS: The lung bases are clear without pulmonary nodules, masses, or pleural fluid collections. The inferi or imaged mediastinum and heart is normal in size and there is no pericardial effusion. Status post cholecystectomy. Liver and spleen are unremarkable. There is circumferential wall thicken ing, edema and mild inflammatory change at the junction of the 3rd/4th portion of the duodenum and wi thin the fat plane between the pancreatic head/uncinate process and duodenum at this level. No peripa ncreatic fluid collection or inflammatory change within the lesser sac. The adrenal glands are normal bilaterally. The kidneys perfuse in a normal fashion and the ureters r un in an unobstructed course to a minimally distended urinary bladder. Status post hysterectomy. Vaginal cuff and adnexa are unremarkable. Pelvic phleboliths are present. The appendix is normal in appearance. The bowel is without obstruction or inflammation and there is n o free fluid or free air within the peritoneal cavity. There are no pathologically enlarged lymph no sirisha in the abdomen or pelvis. The arteriovascular structures are within normal limits. Soft tissues are normal. The osseous structures are intact without fracture or malalignment. IMPRESSION: 1. Inflammation with edema and thickening of the bowel wall at the junction of the 3rd/4th portion of the duodenum with loss of the fat plane between the pancreatic head/uncinate process at this level. Differential considerations include duodenitis and groove pancreatitis. Correlate with serology and c linically. 2. No other acute intra-abdominal or intrapelvic process. Reported By:
[2017-08-23] MEDS ORDERED: PHENERGAN INJ 25 MG IVP ONE (19:20)
[2017-08-23] MEDS ORDERED: PHENERGAN INJ 25 MG ONE (19:25)
[2017-08-23] MEDS ORDERED: HumuLIN R SUBCUT PRN (20:46)
[2017-08-23] MEDS: PROTONIX INJ 40 MG VIAL IVP SCH (22:39)
[2017-08-23] MEDS: NS 1000 ML 1,000 ML IV SCH (22:39)
[2017-08-23] MEDS: REGLAN INJ 10 MG VIAL IVP SCH (22:40)
[2017-08-23 22:49] VITALS: BMI 38.0
[2017-08-24] MEDS: REGLAN INJ 10 MG VIAL IVP SCH ×3 (04:33→20:33)
[2017-08-24] MEDS: NS 1000 ML 1,000 ML IV SCH ×3 (04:34→21:36)
[2017-08-24 05:26] LABS: BASOPHILS # (AUTO) 0.1 X10^3/uL (0.0-0.1); BASOPHILS % (AUTO) 0.5 % (0.2-1.0); EOSINOPHILS # (AUTO) 0.1 x10^3/uL (0.0-0.2); EOSINOPHILS % (AUTO) 1.1 % (0.9-2.9); HEMATOCRIT 37.3 % (36.0-47.0); HEMOGLOBIN 12.1 g/dL (12.0-16.0); LYMPHOCYTES # (AUTO) 3.7 X10^3/uL (1.3-2.9); LYMPHOCYTES % (AUTO) 32.6 % (21.0-51.0); MEAN CORPUSCULAR HEMOGLOBIN 25.7 pg (27.0-34.0); MEAN CORPUSCULAR HGB CONC 32.5 g/dL (33.0-35.0); MEAN PLATELET VOLUME 10.2 fL (7.4-11.0); MONOCYTES # (AUTO) 0.6 x10^3/uL (0.3-0.8); NEUTROPHILS # (AUTO) 6.9 x10^3/uL (2.2-4.8); NEUTROPHILS % (AUTO) 60.8 % (42.0-75.0); PLATELET COUNT 211 X10^3/uL (150.0-450.0); RED BLOOD COUNT 4.72 X10^6/uL (3.5-5.4); RED CELL DISTRIBUTION WIDTH 14.9 % (11.6-16.5); WHITE BLOOD COUNT 11.4 X10^3/uL (3.6-10.0)
[2017-08-24 05:44] LABS: ALANINE AMINOTRANSFERASE 12 Units/L (12-78); ALBUMIN 2.8 g/dL (3.4-5.0); ALKALINE PHOSPHATASE 83 Units/L (46-116); ASPARTATE AMINO TRANSFERASE 12 Units/L (15-37); BLOOD UREA NITROGEN 16 mg/dL (7-18); CALCIUM 8.5 mg/dL (8.5-10.1); CARBON DIOXIDE 30.1 mmol/L (21-32); CHLORIDE 105 mmol/L (98-107); COR CA(FOR HYPOALB) 9.5 mg/dL (8.5-10.1); CREATININE 0.87 mg/dL (0.55-1.02); SODIUM 142 mmol/L (136-145); TOTAL PROTEIN 6.3 g/dL (6.4-8.2); eGFR BLACK RACES > 60 (>60); eGFR NON BLACK RACES > 60 (>60)
[2017-08-24 06:14] LABS: HYPOCHROMASIA SLIGHT; PLATELET MORPHOLOGY COMMENT NORMAL (NORMAL)
[2017-08-24] MEDS ORDERED: MAG-OX TAB PO PRN (06:16)
[2017-08-24] MEDS ORDERED: K-LYTE EFFERVESCENT PO PRN (06:16)
[2017-08-24] MEDS ORDERED: POTASSIUM CHL 60 MEQ/NS 0.45% 500 ML IV PRN (06:16)
[2017-08-24] MEDS ORDERED: POTASSIUM CHLORIDE LIQ 20 MEQ UDC PO PRN (06:16)
[2017-08-24] MEDS ORDERED: K-RIDER 10 MEQ/NS 100 ML 10 MEQ/100 ML BAG IV PRN (06:16)
[2017-08-24] MEDS ORDERED: MAGNESIUM SULFATE 1 GM/100 mL PREMIX 1 GM/100 ML BAG IV PRN (06:16)
[2017-08-24] MEDS: POTASSIUM CHL 40 MEQ/NS 0.45% 500 ML IV PRN (06:40)
[2017-08-24] MEDS: PROTONIX INJ 40 MG VIAL IVP SCH ×2 (09:06→20:32)
[2017-08-24] MEDS ORDERED: DIPRIVAN VIAL 20 ML ONE (12:35)
[2017-08-24] MEDS ORDERED: NS 500 ML IV 500 ML IV ONE (12:44)
[2017-08-24] MEDS: CARAFATE PO SCH ×3 (14:01→20:32)
[2017-08-25] MEDS: REGLAN INJ 10 MG VIAL IVP SCH (05:15)
[2017-08-25] MEDS: NS 1000 ML 1,000 ML IV SCH (05:15)
[2017-08-25 05:38] LABS: BASOPHILS # (AUTO) 0.1 X10^3/uL (0.0-0.1); BASOPHILS % (AUTO) 0.6 % (0.2-1.0); EOSINOPHILS # (AUTO) 0.2 x10^3/uL (0.0-0.2); EOSINOPHILS % (AUTO) 2.1 % (0.9-2.9); HEMATOCRIT 37.4 % (36.0-47.0); LYMPHOCYTES # (AUTO) 2.9 X10^3/uL (1.3-2.9); LYMPHOCYTES % (AUTO) 34.6 % (21.0-51.0); MEAN CORPUSCULAR HEMOGLOBIN 25.5 pg (27.0-34.0); MEAN CORPUSCULAR VOLUME 79.7 fL (80.0-100.0); MEAN PLATELET VOLUME 10.4 fL (7.4-11.0); MONOCYTES # (AUTO) 0.4 x10^3/uL (0.3-0.8); MONOCYTES % (AUTO) 5.4 % (0.0-13.0); NEUTROPHILS # (AUTO) 4.7 x10^3/uL (2.2-4.8); NEUTROPHILS % (AUTO) 57.3 % (42.0-75.0); PLATELET COUNT 191 X10^3/uL (150.0-450.0); RED BLOOD COUNT 4.69 X10^6/uL (3.5-5.4); RED CELL DISTRIBUTION WIDTH 14.9 % (11.6-16.5); WHITE BLOOD COUNT 8.3 X10^3/uL (3.6-10.0)
[2017-08-25] MEDS: CARAFATE PO SCH ×2 (05:41→10:54)
[2017-08-25 05:50] LABS: ALANINE AMINOTRANSFERASE 15 Units/L (12-78); ALBUMIN 2.7 g/dL (3.4-5.0); ALKALINE PHOSPHATASE 85 Units/L (46-116); ASPARTATE AMINO TRANSFERASE 10 Units/L (15-37); BLOOD UREA NITROGEN 9 mg/dL (7-18); CALCIUM 8.6 mg/dL (8.5-10.1); CARBON DIOXIDE 30.8 mmol/L (21-32); CHLORIDE 109 mmol/L (98-107); COR CA(FOR HYPOALB) 9.6 mg/dL (8.5-10.1); CREATININE 0.67 mg/dL (0.55-1.02); SODIUM 144 mmol/L (136-145); TOTAL PROTEIN 6.1 g/dL (6.4-8.2); eGFR BLACK RACES > 60 (>60); eGFR NON BLACK RACES > 60 (>60)
[2017-08-25 06:17] LABS: PLATELET MORPHOLOGY COMMENT NORMAL (NORMAL)
[2017-08-25] MEDS: POTASSIUM CHL 40 MEQ/NS 0.45% 500 ML IV PRN (06:20)
[2017-08-25] MEDS: PROTONIX INJ 40 MG VIAL IVP SCH (09:06)
[2017-08-25] MEDS ORDERED: ZESTRIL TAB 20 MG PO SCH (10:00)
[2017-08-25] MEDS ORDERED: ZESTRIL TAB 20 MG ONE (10:52)
[2017-08-25 12:23] VITALS: BP 195/89
== END 2017-08-25 13:50 | disposition home or self-care (01) ==
LOC: ER 15:51 → MED/SURG 21:39
PROVIDERS: ADMIT Obstetrics & Gynecology Obstetrics; ATTEND Obstetrics & Gynecology Obstetrics
PROC: 0DB68ZX Excision of Stomach, Via Natural or Artificial Opening Endoscopic, Diagnostic (ICD-10-PCS; 2017-08-24)
PROC: 0DB98ZX Excision of Duodenum, Via Natural or Artificial Opening Endoscopic, Diagnostic (ICD-10-PCS; principal; 2017-08-24 12:30)
DX: K29.80 Duodenitis without bleeding (principal); A08.39 Other viral enteritis; E86.0 Dehydration; R11.2 Nausea with vomiting, unspecified; E11.65 Type 2 diabetes mellitus with hyperglycemia; I10 Essential (primary) hypertension; R19.7 Diarrhea, unspecified; R10.84 Generalized abdominal pain; K21.9 Gastro-esophageal reflux disease without esophagitis
CPT/HCPCS: 36415; 74177; 80053; 81001; 83690; 83735; 84132; 85025; 87502; 96365; 96367; 96374; 96375; 99284; A4216; A4222; C9113; A4217; G0378; J1815; J2405; J2550; J2765; J3490

== ENCOUNTER 2017-11-03 08:18 | Emergency (ER) | payer MEDICAID ==
[2017-11-03 08:26] VITALS: BP 149/69; BMI 40.7
--- NOTE | 2017-11-03 08:45 | DR.GENAD ---
HPI - PCP Primary Care Physician: CANDI - Complaint/Symptoms Chief Complaint:: ABDOMEN PAIN WITH NAUSEA AND DIARRHEA. GREENISH VOMIT AND DIARRHEA.FOR TWO DAYS. TOOK OTC MEDICINE. TOOK ZANTAC AND PEPCID - Source History Provided: Patient - Mode of Arrival Mode of Arrival: Ambulatory - Timing Onset of Chief Complaint: 11/01/17 PMH - PMH Past Medical History: Yes Past Medical History: Asthma, Diabetes, Hypertension Past Surgical History: Yes Surgical History: Cholecystectomy, Hysterectomy, Thyroidectomy, Tonsillectomy Past Surgical History Comment: POLYPS REMOVED - Family History History of Family Medical Conditions: Yes Family Medical History: Diabetes Mellitus, Coronary Artery Disease, Hypertension - Social History Does any household member use tobacco: Yes Alcohol Use: None Do you use any recreational Drugs:: No Lives With: Family Lives Where: Home - infectious screening In the last 2 months have you had wt loss of >10#?: NO Have you had fever, night sweats or hemotysis?: No Have you traveled outside the country in the last 6 months?: No Isolation: Standard ROS - Review of Systems Eyes: No Symptoms Reported ENTM: No Symptoms Reported Respiratoy: No Symptoms Reported Cardiovascular: No Symptoms Reported Gastrointestinal/Abdominal: Diarrhea, Nausea, Vomiting Genitourinary: No Symptoms Reported Neurological: No Symptoms Reported Musculoskeletal: No Symptoms Reported Integumentary: No Symptoms Reported Hematologic/Lymphatic: No Symptoms Reported Endocrine: No Symptoms Reported Psychiatric: No Symptoms Reported All Other Systems: Reviewed and Negative PE - Vital Signs Vitals: Temperature 98.7 F Pulse Rate 68 Respiratory Rate 22 Blood Pressure [Right Arm] 195/89 Blood Pressure [Left Arm] 186/76 Blood Pressure 149/69 O2 Sat by Pulse Oximetry 99 - General Limitations: No Limitations - Head Head Exam: Normal Inspection, Atraumatic - Eyes Eye exam: Normal Appearance, PERRL, EOMI - ENT ENT Exam: Normal Exam External Ear Exam: Normal External Inspection TM/Canal Exam: Bilateral Normal Nose Exam: Normal Nose Exam Mouth Exam: Normal Inspection Throat Exam: Normal Inspection - Neck Neck Exam: Normal Inspection - Chest Chest Inspection: Normal Inspection, Symmetric Chest Wall Rise - Respiratory Respiratory Exam: Normal Lung Sounds Bilat Respiratory Exam: Bilateral Clear to Auscultation - Cardiovascular Cardiovascular Exam: Regular Rate, Normal Rhythm - Abdominal Exam Abdominal Exam: Normal Inspection, Soft, Hyperactive Bowel Sounds, Hypoactive Bowel Sounds Abdominal Tenderness: negative: RUQ, RLQ, LUQ, LLQ, Epigastrium, Suprapubic, Diffuse, Mild, Moderate, Severe, Other - Extremities Extremities Exam: Normal Inspection, Full ROM - Back Back Exam: Normal Inspection, Full ROM - Neurologic Neurological Exam: Alert, Oriented X3, CN II-XII Intact - Psychiatric Psychiatric Exam: Normal Affect - Skin Skin Exam: Warm, Dry, Intact ROR - Labs Reviewed Result Diagrams: 11/03/17 09:00 11/03/17 09:00 Laboratory: WBC 10.2 X10^3/uL (3.6-10.0) H 11/03/17 09:00 RBC 5.09 X10^6/uL (3.5-5.4) 11/03/17 09:00 Hgb 13.3 g/dL (12.0-16.0) 11/03/17 09:00 Hct 40.6 % (36.0-47.0) 11/03/17 09:00 MCV 79.7 fL (80.0-100.0) L 11/03/17 09:00 MCH 26.1 pg (27.0-34.0) L 11/03/17 09:00 MCHC 32.7 g/dL (33.0-35.0) L 11/03/17 09:00 RDW 14.6 % (11.6-16.5) 11/03/17 09:00 Plt Count 183 X10^3/uL (150.0-450.0) 11/03/17 09:00 MPV 10.2 fL (7.4-11.0) 11/03/17 09:00 Neut % (Auto) 69.1 % (42.0-75.0) 11/03/17 09:00 Lymph % (Auto) 24.7 % (21.0-51.0) 11/03/17 09:00 [place] % (Auto) 4.8 % (0.0-13.0) 11/03/17 09:00 Eos % (Auto) 1.0 % (0.9-2.9) 11/03/17 09:00 Baso % (Auto) 0.4 % (0.2-1.0) 11/03/17 09:00 Neut # (Auto) 7.0 x10^3/uL (2.2-4.8) H 11/03/17 09:00 Lymph # (Auto) 2.5 X10^3/uL (1.3-2.9) 11/03/17 09:00 [place] # (Auto) 0.5 x10^3/uL (0.3-0.8) 11/03/17 09:00 Eos # (Auto) 0.1 x10^3/uL (0.0-0.2) 11/03/17 09:00 Baso # (Auto) 0.0 X10^3/uL (0.0-0.1) 11/03/17 09:00 Absolute Nucleated RBC 0.0 /100WBC 11/03/17 09:00 Sodium 144 mmol/L (136-145) 11/03/17 09:00 Corrected Sodium 146 mmol/L (136-145) H 11/03/17 09:00 Potassium 3.2 mmol/L (3.5-5.1) L 11/03/17 09:00 Chloride 111 mmol/L (98-107) H 11/03/17 09:00 Carbon Dioxide 19.7 mmol/L (21-32) L 11/03/17 09:00 BUN 19 mg/dL (7-18) H 11/03/17 09:00 Creatinine 0.94 mg/dL (0.55-1.02) 11/03/17 09:00 Est GFR (MDRD) Af Amer > 60 (>60) 11/03/17 09:00 Est GFR (MDRD) Non-Af > 60 (>60) 11/03/17 09:00 Glucose 182 mg/dL (65-99) H 11/03/17 09:00 Calcium 8.5 mg/dL (8.5-10.1) 11/03/17 09:00 Corrected Calcium 9.1 mg/dL (8.5-10.1) 11/03/17 09:00 Total Bilirubin 0.30 mg/dL (0.2-1.0) 11/03/17 09:00 AST 11 Units/L (15-37) L 11/03/17 09:00 ALT 19 Units/L (12-78) 11/03/17 09:00 Alkaline Phosphatase 103 Units/L (46-116) 11/03/17 09:00 C-Reactive Protein 2.40 mg/L (0-3.0) 11/03/17 09:00 Total Protein 7.3 g/dL (6.4-8.2) 11/03/17 09:00 Albumin 3.3 g/dL (3.4-5.0) L 11/03/17 09:00 Globulin 4.0 g/dL (2.5-4.5) 11/03/17 09:00 Albumin/Globulin Ratio 0.8 Ratio (1.1-2.1) L 11/03/17 09:00 - Diagnosis Discharge Problem: Acute gastroenteritis, Hypokalemia, Mild dehydration - Discharge Plan Condition: Stable Prescriptions: Dicyclomine HCl [Bentyl Cap 10 mg] 10 mg PO TID #18 cap Promethazine HCl 50 mg PO Q6H #12 tablet - Follow ups/Referrals Follow ups/Referrals: MIO BARBOZA [Primary Care Provider] - 3 days - Instructions
[2017-11-03] MEDS ORDERED: LR 1000 ML IV 1,000 ML IV ONE ×2 (08:46→08:53)
[2017-11-03] MEDS ORDERED: BENTYL I.M. INJ 10 MG IM ONE ×2 (08:53→09:05)
[2017-11-03 09:10] LABS: BASOPHILS % (AUTO) 0.4 % (0.2-1.0); EOSINOPHILS # (AUTO) 0.1 x10^3/uL (0.0-0.2); HEMATOCRIT 40.6 % (36.0-47.0); HEMOGLOBIN 13.3 g/dL (12.0-16.0); LYMPHOCYTES # (AUTO) 2.5 X10^3/uL (1.3-2.9); LYMPHOCYTES % (AUTO) 24.7 % (21.0-51.0); MEAN CORPUSCULAR HEMOGLOBIN 26.1 pg (27.0-34.0); MEAN CORPUSCULAR HGB CONC 32.7 g/dL (33.0-35.0); MEAN CORPUSCULAR VOLUME 79.7 fL (80.0-100.0); MEAN PLATELET VOLUME 10.2 fL (7.4-11.0); MONOCYTES # (AUTO) 0.5 x10^3/uL (0.3-0.8); MONOCYTES % (AUTO) 4.8 % (0.0-13.0); NEUTROPHILS % (AUTO) 69.1 % (42.0-75.0); PLATELET COUNT 183 X10^3/uL (150.0-450.0); RED BLOOD COUNT 5.09 X10^6/uL (3.5-5.4); RED CELL DISTRIBUTION WIDTH 14.6 % (11.6-16.5); WHITE BLOOD COUNT 10.2 X10^3/uL (3.6-10.0)
[2017-11-03] MEDS ORDERED: PHENERGAN INJ 25 MG IV ONE (09:13)
[2017-11-03] MEDS ORDERED: PHENERGAN INJ 25 MG ONE (09:15)
[2017-11-03 09:22] LABS: ALANINE AMINOTRANSFERASE 19 Units/L (12-78); ALBUMIN 3.3 g/dL (3.4-5.0); ALKALINE PHOSPHATASE 103 Units/L (46-116); ASPARTATE AMINO TRANSFERASE 11 Units/L (15-37); BLOOD UREA NITROGEN 19 mg/dL (7-18); CALCIUM 8.5 mg/dL (8.5-10.1); CARBON DIOXIDE 19.7 mmol/L (21-32); CHLORIDE 111 mmol/L (98-107); COR CA(FOR HYPOALB) 9.1 mg/dL (8.5-10.1); COR NA(FOR HYPERGLY) 146 mmol/L (136-145); CREATININE 0.94 mg/dL (0.55-1.02); SODIUM 144 mmol/L (136-145); TOTAL PROTEIN 7.3 g/dL (6.4-8.2); eGFR BLACK RACES > 60 (>60); eGFR NON BLACK RACES > 60 (>60)
[2017-11-03] MEDS ORDERED: K-LYTE EFFERVESCENT PO ONE (09:36)
[2017-11-03] MEDS ORDERED: K-LYTE EFFERVESCENT ONE (09:49)
[2017-11-03 10:53] LABS: APPEARANCE,URINE HAZY (CLEAR); BILIRUBIN,URINE NEGATIVE (NEGATIVE); BLOOD/HEMOGLOBIN,URINE NEGATIVE (NEGATIVE); COLOR,URINE YELLOW (YELLOW); GLUCOSE, URINE NEGATIVE (NEGATIVE); KETONES,URINE NEGATIVE (NEGATIVE); LEUKOCYTE ESTERASE ,URINE NEGATIVE (NEGATIVE); NITRITES,URINE NEGATIVE (NEGATIVE); PROTEIN,URINE 2+ (NEGATIVE); UROBILINOGEN,URINE NORMAL (NORMAL)
[2017-11-03 10:54] LABS: BACTERIA,URINE NEGATIVE /HPF (NEGATIVE); HYALINE CASTS, URINE RARE /LPF (NEGATIVE); MUCUS,URINE RARE /HPF (NEGATIVE); RBC,URINE NONE SEEN /HPF (NONE SEEN); SQUAMOUS EPITHELIAL CELL,UR FEW /HPF (NEGATIVE)
== END 2017-11-03 11:03 | disposition home or self-care (01) ==
LOC: ER 08:32
DX: K52.89 Other specified noninfective gastroenteritis and colitis (principal); E87.6 Hypokalemia; E86.0 Dehydration
CPT/HCPCS: 36415; 80053; 81001; 85025; 86140; 96365; 96372; 96374; 96375; 99283; A4222; J0500; J2550; J7120

== ENCOUNTER 2017-11-06 04:27 | Inpatient (IN) | payer MEDICAID ==
[2017-11-06 04:37] VITALS: BMI 40.7
[2017-11-06] MEDS ORDERED: ZOFRAN INJ 4 MG VIAL IVP ONE (05:20)
[2017-11-06] MEDS ORDERED: NS 1000 ML 1,000 ML IV ONE (05:20)
--- NOTE | 2017-11-06 05:27 | DR.GENAD ---
HPI - PCP Primary Care Physician: Royal Kathleen - Complaint/Symptoms Chief Complaint Doctors Comments: Patient is complaining of abdominal pain with her stomach feeling "full" with diarrhea for the past two days. Sates she came to the emergency room two days ago and was told she had gastroenteritis and she took the medicines but continues to have diarrhea 3-4 times nightly with her being unable to hold her stool. States she saw Dr. Mccoy about two months ago in [place] and had a colonoscopy with polyps removed. States her regular doctor is Dr. Thompson in [place]. She denies tobacco or alcohol usage. States she has been having fever, chills and diarrhea. states she has been having stomach pain that is sharp in the top of her stomach. States she has not been able to keep anything down today and she tried soup and it came back up along with juices. She denies hematuria or maegan. Chief Complaint:: Stomach Self Treatment fo Chief Complaint: Prescribe meds from previous visit. - Nurses notes reviewed Nurses Notes Review: Yes - Source History Provided: Patient - Mode of Arrival Mode of Arrival: Ambulatory - Timing Onset of Chief Complaint: 11/06/17 Came on: Gradually - Duration Duration: Intermittent How lon Duration: Days - Location Location: epigastric pain - Severity Severity: Moderate - Modifying Factors Worsens:: eating Improves:: nothing PMH - PMH Past Medical History: Yes Past Medical History: Diabetes, Hypertension Past Surgical History: Yes Surgical History: Cholecystectomy, Hysterectomy, Thyroidectomy - Family History History of Family Medical Conditions: Yes Family Medical History: Diabetes Mellitus, Hypertension - Social History Does patient currently use any type of tobacco product: No Have you used tobacco products in the last 12 months: No Type of Tobacco Use: None Does any household member use tobacco: No Do you use any recreational Drugs:: No Lives With: Family Lives Where: Home - infectious screening In the last 2 months have you had wt loss of >10#?: NO Have you had fever, night sweats or hemotysis?: No Have you traveled outside the country in the last 6 months?: No Isolation: Standard ROS - Review of Systems Constitutional: No Symptoms Reported, Chills, Fever, Weakness, Loss of Appetite. negative: See HPI, Diaphoresis, Malaise, Irritable, Fatigue, Other Eyes: No Symptoms Reported. negative: See HPI, Eye Pain, Blurred Vision, Tearing, Discharge, Photophobia, Diplopia, Other ENTM: No Symptoms Reported. negative: See HPI, Ear Pain, Ear Discharge, Pulling on Ears, Hearing Loss, Nose Pain, Nose Discharge, Epistaxis, Nose Congestion, Mouth Pain, Mouth Swelling, Loose Teeth, Drooling, Throat Pain, Throat Swelling, Ear Foreign Body Respiratoy: No Symptoms Reported. negative: See HPI, Productive Cough, Non- Productive Cough, Moist Cough, Dry Cough, Hacking Cough, Barking Cough, Brassy Cough, Orthopnea, Short of Breath, Stridor, Wheezing, Hemoptysis, Other Cardiovascular: No Symptoms Reported. negative: See HPI, Chest Pain, Edema, Palpitations, Syncope, Cyanosis, Skin Mottling, Other Gastrointestinal/Abdominal: No Symptoms Reported, Abdominal Pain, Diarrhea, Nausea, Vomiting. negative: See HPI, Constipation, Food Intolerance, Other Genitourinary: No Symptoms Reported. negative: See HPI, Discharge, Dysuria, Frequency, Hematuria, Pain, Bleeding, Other Neurological: No Symptoms Reported. negative: See HPI, Anxiety, Depressed, Emotional Problems, Headache, Numbness, Paresthesia, Pre-existing Deficit, Seizure, Tingling, Tremors, Weakness, Dizziness, Problems Walking, Speech Problem, Other Musculoskeletal: No Symptoms Reported Integumentary: No Symptoms Reported. negative: See HPI, Change in Color, Change in Hair/Nails, Dryness, Lesions, Lumps, Rash, Itching, Wound, Bruises, Juandice, Other Hematologic/Lymphatic: No Symptoms Reported. negative: See HPI, Anemia, Blood Clots, Easy Bleeding, Easy Bruising, Swollen Glands, Lymphadenopathy, Other Endocrine: No Symptoms Reported, Decreased Appetite. negative: See HPI, Excessive Sweating, Flushing, Intolerance to Cold, Intolerance to Heat, Increased Hunger, Increased Thirst, Increased Urine, Unexplained Weight Gain, Unexplained Weight Loss, Failure to Thrive, Other Psychiatric: No Symptoms Reported. negative: See HPI, Anxiety, Depression, Hallucinations, Excessive crying, Suicidal, Other PE - Vital Signs Vitals: Temperature 98.1 F Pulse Rate 92 Respiratory Rate 16 Blood Pressure [Right Arm] 195/89 Blood Pressure [Left Arm] 186/76 Blood Pressure 145/79 O2 Sat by Pulse Oximetry 99 - General Limitations: No Limitations General Appearance: Alert, In Distress (mild), Obese - Head Head Exam: Normal Inspection, Atraumatic, Normocephalic - Eyes Eye exam: Normal Appearance, PERRL, EOMI. negative: Scleral Icterus, Conjunctival Injection, Nystagmus, Miosis, Mydrasis, Periorbital Swelling, Periorbital Tenderness, Other - ENT ENT Exam: Normal Exam, Normal Oropharynx, Normal External Ear Exam, Mucous Membranes Moist, TM's Normal Bilaterally External Ear Exam: Normal External Inspection TM/Canal Exam: Bilateral Normal Nose Exam: Normal Nose Exam Mouth Exam: Normal Inspection. negative: Drooling, Trismus, Lip Swelling, Tongue Elevation, Tongue Swelling, Laceration, Other Throat Exam: Normal Inspection. negative: Tonsillar Erythema, Tonsillomegaly, Tonsillar Exudate, R Peritonsillar Mass, L Peritonsillar Mass, Muffled Voice, Other - Neck Neck Exam: Normal Inspection, Full ROM, Trachea Midline - Chest Chest Inspection: Normal Inspection, Symmetric Chest Wall Rise. negative: Tenderness, Rash, Abscess, Other - Respiratory Respiratory Exam: Normal Lung Sounds Bilat. negative: Accessory Muscle Use, Chest Wall Tenderness, Prolonged Expiratory Phase, Respiratory Distress, Stridor , Other Respiratory Exam: Bilateral Clear to Auscultation - Cardiovascular Cardiovascular Exam: Regular Rate, Normal Rhythm, Normal Heart Sounds. negative : Bradycardia, Tachycardia, Irregular Rhythm, Systolic Murmur, Diastolic Murmur , Rubs, Gallop, Clicks, JVD, +S1, +S2, +S3, +S4, Other - Abdominal Exam Abdominal Exam: Normal Inspection, Normal Bowel Sounds, Soft, Distention, Tenderness (epigastric tenderness), Hyperactive Bowel Sounds Abdominal Tenderness: Epigastrium, Moderate - Extremities Extremities Exam: Normal Inspection, Full ROM, Normal Capillary Refill. negative: Tenderness, Edema, Joint Swelling, Calf Tenderness, Other - Back Back Exam: Normal Inspection, Full ROM. negative: Tenderness, (R) CVA Tenderness, (L) CVA Tenderness, Muscle Spasm, Paraspinal Tenderness, Vertebral Tenderness, Rashes, (R) Sciatic Notch Tenderness, (L) Sciatic Notch Tendern, (R ) Straight Leg Raise, (L) Straight Leg Raise, Other - Neurologic Neurological Exam: Alert, Oriented X3, CN II-XII Intact, Reflexes Normal. negative: Normal Gait (gait not tested) - Psychiatric Psychiatric Exam: Normal Affect, Normal Mood - Skin Skin Exam: Warm, Dry, Intact, Normal Color Course - Reevaluation 1st: Improved - Consultation Called: 07:41 Call Returned: 07:53 (Dr. Valle to admit) - Education/Counseling Education/Counseling: Patient Educated On: Treatment, Diagnosis, Needs for Follow Up ROR - Labs Reviewed Laboratory Results Reviewed?: Yes (All labs and x-ray results reviewed and discussed with patient) Result Diagrams: 11/06/17 05:28 11/06/17 05:28 Laboratory: WBC 10.4 X10^3/uL (3.6-10.0) H 11/06/17 05:28 RBC 5.47 X10^6/uL (3.5-5.4) H 11/06/17 05:28 Hgb 14.2 g/dL (12.0-16.0) 11/06/17 05:28 Hct 43.4 % (36.0-47.0) 11/06/17 05:28 MCV 79.4 fL (80.0-100.0) L 11/06/17 05:28 MCH 26.0 pg (27.0-34.0) L 11/06/17 05:28 MCHC 32.8 g/dL (33.0-35.0) L 11/06/17 05:28 RDW 14.3 % (11.6-16.5) 11/06/17 05:28 Plt Count 203 X10^3/uL (150.0-450.0) 11/06/17 05:28 MPV 10.2 fL (7.4-11.0) 11/06/17 05:28 Neut % (Auto) 72.2 % (42.0-75.0) 11/06/17 05:28 Lymph % (Auto) 20.8 % (21.0-51.0) L 11/06/17 05:28 [place] % (Auto) 4.4 % (0.0-13.0) 11/06/17 05:28 Eos % (Auto) 0.5 % (0.9-2.9) L 11/06/17 05:28 Baso % (Auto) 2.1 % (0.2-1.0) H 11/06/17 05:28 Neut # (Auto) 7.5 x10^3/uL (2.2-4.8) H 11/06/17 05:28 Lymph # (Auto) 2.2 X10^3/uL (1.3-2.9) 11/06/17 05:28 [place] # (Auto) 0.5 x10^3/uL (0.3-0.8) 11/06/17 05:28 Eos # (Auto) 0.1 x10^3/uL (0.0-0.2) 11/06/17 05:28 Baso # (Auto) 0.2 X10^3/uL (0.0-0.1) H 11/06/17 05:28 Absolute Nucleated RBC 0.0 /100WBC 11/06/17 05:28 Sodium 141 mmol/L (136-145) 11/06/17 05:28 Corrected Sodium 142 mmol/L (136-145) 11/06/17 05:28 Potassium 3.0 mmol/L (3.5-5.1) L* 11/06/17 05:28 Chloride 109 mmol/L (98-107) H 11/06/17 05:28 Carbon Dioxide 19.9 mmol/L (21-32) L 11/06/17 05:28 BUN 28 mg/dL (7-18) H 11/06/17 05:28 Creatinine 1.02 mg/dL (0.55-1.02) 11/06/17 05:28 Est GFR (MDRD) Af Amer > 60 (>60) 11/06/17 05:28 Est GFR (MDRD) Non-Af 60 (>60) 11/06/17 05:28 Glucose 151 mg/dL (65-99) H 11/06/17 05:28 Calcium 8.7 mg/dL (8.5-10.1) 11/06/17 05:28 Corrected Calcium TNP 11/06/17 05:28 Total Bilirubin 0.30 mg/dL (0.2-1.0) 11/06/17 05:28 AST 11 Units/L (15-37) L 11/06/17 05:28 ALT 17 Units/L (12-78) 11/06/17 05:28 Alkaline Phosphatase 106 Units/L (46-116) 11/06/17 05:28 Total Protein 7.7 g/dL (6.4-8.2) 11/06/17 05:28 Albumin 3.5 g/dL (3.4-5.0) 11/06/17 05:28 Globulin 4.2 g/dL (2.5-4.5) 11/06/17 05:28 Albumin/Globulin Ratio 0.8 Ratio (1.1-2.1) L 11/06/17 05:28 Amylase 58 Units/L (25-115) 11/06/17 05:28 Lipase 123 Units/L (73-393) 11/06/17 05:28 HCG, Qual Negative <10 mIU/mL 11/06/17 05:28 Specimen Type Clean catch urine 11/06/17 05:52 Urine Color Yellow (YELLOW) 11/06/17 05:52 Urine Appearance Slightly hazy (CLEAR) 11/06/17 05:52 Urine pH 6.0 (5.0 - 8.0) 11/06/17 05:52 Ur Specific [place] 1.020 (1.000-1.030) 11/06/17 05:52 Urine Protein 2+ (NEGATIVE) 11/06/17 05:52 Urine Glucose (UA) Negative (NEGATIVE) 11/06/17 05:52 Urine Ketones Negative (NEGATIVE) 11/06/17 05:52 Urine Occult Blood Negative (NEGATIVE) 11/06/17 05:52 Urine Nitrite Negative (NEGATIVE) 11/06/17 05:52 Urine Bilirubin Negative (NEGATIVE) 11/06/17 05:52 Urine Urobilinogen Normal (NORMAL) 11/06/17 05:52 Ur Leukocyte Esterase Negative (NEGATIVE) 11/06/17 05:52 Urine RBC None seen /HPF (NONE SEEN) 11/06/17 05:52 Urine WBC 0-2 /HPF (NONE SEEN) 11/06/17 05:52 Ur Squamous Epith Cells Few /HPF (NEGATIVE) 11/06/17 05:52 Urine Bacteria Trace /HPF (NEGATIVE) 11/06/17 05:52 Granular Casts Few /LPF (NEGATIVE) 11/06/17 05:52 Coarse Granular Casts Moderate /HPF (NEGATIVE) 11/06/17 05:52 Ur Culture Indicated? No/not indicated 11/06/17 05:52 - XRAY XRAY Interpreted by: Radiologist (CT abdomen: Developing small bowel obstruction suspected. Bowel is minimally inflamed, and inflammatory bowel disease such as Crohn's disease is possible. Infectgious enteritis is possible.) - Diagnosis Discharge Problem: Acute gastroenteritis, Hypokalemia, Metabolic acidosis, abdominal pain r/o SBO , Hyperglycemia - Discharge Plan Disposition: ADMITTED INPATIENT Condition: Stable - Follow ups/Referrals Follow ups/Referrals: ROYAL KATHLEEN [Primary Care Provider] - 3 days - Instructions
[2017-11-06 05:39] LABS: BASOPHILS # (AUTO) 0.2 X10^3/uL (0.0-0.1); BASOPHILS % (AUTO) 2.1 % (0.2-1.0); EOSINOPHILS # (AUTO) 0.1 x10^3/uL (0.0-0.2); EOSINOPHILS % (AUTO) 0.5 % (0.9-2.9); HEMATOCRIT 43.4 % (36.0-47.0); HEMOGLOBIN 14.2 g/dL (12.0-16.0); LYMPHOCYTES # (AUTO) 2.2 X10^3/uL (1.3-2.9); LYMPHOCYTES % (AUTO) 20.8 % (21.0-51.0); MEAN CORPUSCULAR HGB CONC 32.8 g/dL (33.0-35.0); MEAN CORPUSCULAR VOLUME 79.4 fL (80.0-100.0); MEAN PLATELET VOLUME 10.2 fL (7.4-11.0); MONOCYTES # (AUTO) 0.5 x10^3/uL (0.3-0.8); MONOCYTES % (AUTO) 4.4 % (0.0-13.0); NEUTROPHILS # (AUTO) 7.5 x10^3/uL (2.2-4.8); NEUTROPHILS % (AUTO) 72.2 % (42.0-75.0); PLATELET COUNT 203 X10^3/uL (150.0-450.0); RED BLOOD COUNT 5.47 X10^6/uL (3.5-5.4); RED CELL DISTRIBUTION WIDTH 14.3 % (11.6-16.5); WHITE BLOOD COUNT 10.4 X10^3/uL (3.6-10.0)
[2017-11-06 05:49] LABS: ALANINE AMINOTRANSFERASE 17 Units/L (12-78); ALBUMIN 3.5 g/dL (3.4-5.0); ALKALINE PHOSPHATASE 106 Units/L (46-116); AMYLASE 58 Units/L (25-115); ASPARTATE AMINO TRANSFERASE 11 Units/L (15-37); BLOOD UREA NITROGEN 28 mg/dL (7-18); CALCIUM 8.7 mg/dL (8.5-10.1); CARBON DIOXIDE 19.9 mmol/L (21-32); CHLORIDE 109 mmol/L (98-107); COR NA(FOR HYPERGLY) 142 mmol/L (136-145); CREATININE 1.02 mg/dL (0.55-1.02); LIPASE 123 Units/L (73-393); SODIUM 141 mmol/L (136-145); TOTAL PROTEIN 7.7 g/dL (6.4-8.2); eGFR BLACK RACES > 60 (>60); eGFR NON BLACK RACES 60 (>60)
[2017-11-06 05:54] LABS: SERUM PREGNANCY TEST, QUAL NEGATIVE <10 mIU/mL
[2017-11-06] MEDS ORDERED: ZOFRAN INJ 4 MG VIAL ONE (05:56)
[2017-11-06] MEDS ORDERED: NS 1000 ML 1,000 ML ONE (05:56)
[2017-11-06] MEDS ORDERED: K-LYTE EFFERVESCENT ONE (06:02)
[2017-11-06] MEDS ORDERED: K-LYTE EFFERVESCENT PO ONE (06:02)
[2017-11-06 06:06] LABS: BILIRUBIN,URINE NEGATIVE (NEGATIVE); BLOOD/HEMOGLOBIN,URINE NEGATIVE (NEGATIVE); GLUCOSE, URINE NEGATIVE (NEGATIVE); KETONES,URINE NEGATIVE (NEGATIVE); LEUKOCYTE ESTERASE ,URINE NEGATIVE (NEGATIVE); NITRITES,URINE NEGATIVE (NEGATIVE); PROTEIN,URINE 2+ (NEGATIVE); UROBILINOGEN,URINE NORMAL (NORMAL)
--- NOTE | 2017-11-06 06:10 | CT ---
CT abdomen and pelvis without contrast Indication: Abdominal pain with nausea, vomiting and diarrhea Comparison: 08/23/2017 CT Technique: Helical images through the abdomen and pelvis without contrast. Coronal and sagittal refor mats provided. Findings: Review of bone windows demonstrates spine degenerative change without destructive osseous l esion. Sclerotic lesion at L1 is unchanged from the prior CT from 12/08/2013 is most compatible with a hemangioma. Limited images through the lower chest shows no acute abnormality. Abdomen: The gallbladder is absent. The liver, spleen, adrenal glands and pancreas show no acute abno rmality. The stomach and duodenum show no acute abnormality. The colon and appendix are normal. Scattered vascular calcifications noted. Retro aortic left renal v ein noted. The kidneys are normal without hydroureteronephrosis. There is mild small bowel dilatation and in the left abdomen see coronal image 23. Distally the small bowel is collapsed. Transition point is best seen on coronal image 13 through 22 in the left abdomen . Mild increased vascular markings noted. Few vascular calcifications noted with retro aortic left renal vein seen. Pelvis: The urinary bladder and rectum are normal. Uterus is absent. No adnexal region lesions seen. Impression: 1. Developing small bowel obstruction suspected, with transition point in the left abdomen. The bowel is minimally inflamed, and inflammatory bowel disease such as Crohn's disease is possible. Infectiou s enteritis is possible. 2. No other acute abnormality identified. Reported By:
[2017-11-06 06:15] LABS: APPEARANCE,URINE SLIGHTLY HAZY (CLEAR); COLOR,URINE YELLOW (YELLOW)
[2017-11-06 06:16] LABS: BACTERIA,URINE TRACE /HPF (NEGATIVE); COARSE GRANULAR CASTS,URINE MODERATE /HPF (NEGATIVE); RBC,URINE NONE SEEN /HPF (NONE SEEN); SQUAMOUS EPITHELIAL CELL,UR FEW /HPF (NEGATIVE)
[2017-11-06 06:17] LABS: GRANULAR CASTS,URINE FEW /LPF (NEGATIVE)
[2017-11-06] MEDS ORDERED: TORADOL 30 MG VIAL IVP STA (07:35)
[2017-11-06] MEDS ORDERED: ROCEPHIN 1 GM IV PREMIX 1 GM/50 ML IV.SOLN. IV ONE (07:36)
[2017-11-06] MEDS ORDERED: ZOFRAN INJ 4 MG VIAL IVP PRN (08:02)
[2017-11-06] MEDS ORDERED: PEPCID 20 MG IV PREMIX* 20 MG/50 ML BAG IV PRN (08:02)
[2017-11-06] MEDS ORDERED: TORADOL 30 MG VIAL ONE (08:18)
[2017-11-06] MEDS ORDERED: ROCEPHIN VIAL 1 GM ONE (08:18)
[2017-11-06] MEDS ORDERED: NS 100 ML IV + SPIKE MINIBAG* 100 ML IV ONE (08:19)
[2017-11-06] MEDS ORDERED: ROCEPHIN 1 GM IV PREMIX 1 GM/50 ML IV.SOLN. IV SCH (09:00)
[2017-11-06] MEDS ORDERED: NS 1/2 + KCL 20 MEQ/L 1,000 ML IV SCH (09:00)
[2017-11-06] MEDS: ROCEPHIN VIAL 1 GM 1 GM in NS 100 ML IV + SPIKE MINIBAG* 100 ML IV SCH (09:41)
[2017-11-06] MEDS: NS 1/2 + KCL 20 MEQ/L 1,000 ML IV SCH ×3 (09:45→16:55)
[2017-11-06] MEDS: MORPHINE SULFATE INJ 2 MG INJ IVP PRN ×3 (10:12→23:04)
[2017-11-06] MEDS: PHENERGAN INJ 25 MG IVP PRN ×2 (11:34→16:35)
[2017-11-06 12:02] LABS: STOOL FOR WBC NEGATIVE (NEGATIVE)
[2017-11-06 12:37] LABS: CRYPTOSPORIDIUM PARVUM ANTIGEN NEGATIVE (NEGATIVE); GIARDIA LAMBLIA ANTIGEN NEGATIVE (NEGATIVE)
[2017-11-06] MEDS ORDERED: ATIVAN INJ 2 MG VIAL IVP ONE (16:08)
--- NOTE | 2017-11-06 17:54 | RAD ---
HISTORY: NG tube placement Study: Two views of the abdomen Comparison: CT same day Findings: Enteric tube terminates in the stomach. Distended bowel loops are noted. The lung bases are clear. Pr ior cholecystectomy is noted. IMPRESSION: 1. Enteric tube terminates in the stomach. Reported By:
[2017-11-06] MEDS: DILAUDID INJ IVP PRN (18:11)
[2017-11-07] MEDS: NS 1/2 + KCL 20 MEQ/L 1,000 ML IV SCH ×4 (00:31→23:44)
[2017-11-07 06:10] LABS: BASOPHILS % (AUTO) 0.3 % (0.2-1.0); EOSINOPHILS # (AUTO) 0.1 x10^3/uL (0.0-0.2); EOSINOPHILS % (AUTO) 0.6 % (0.9-2.9); HEMATOCRIT 39.4 % (36.0-47.0); HEMOGLOBIN 13.1 g/dL (12.0-16.0); LYMPHOCYTES # (AUTO) 2.5 X10^3/uL (1.3-2.9); LYMPHOCYTES % (AUTO) 22.2 % (21.0-51.0); MEAN CORPUSCULAR HGB CONC 33.1 g/dL (33.0-35.0); MEAN CORPUSCULAR VOLUME 78.3 fL (80.0-100.0); MEAN PLATELET VOLUME 10.2 fL (7.4-11.0); MONOCYTES # (AUTO) 0.6 x10^3/uL (0.3-0.8); MONOCYTES % (AUTO) 4.8 % (0.0-13.0); NEUTROPHILS # (AUTO) 8.2 x10^3/uL (2.2-4.8); NEUTROPHILS % (AUTO) 72.1 % (42.0-75.0); PLATELET COUNT 190 X10^3/uL (150.0-450.0); RED BLOOD COUNT 5.03 X10^6/uL (3.5-5.4); RED CELL DISTRIBUTION WIDTH 14.2 % (11.6-16.5); WHITE BLOOD COUNT 11.5 X10^3/uL (3.6-10.0)
[2017-11-07 06:11] LABS: ALANINE AMINOTRANSFERASE 12 Units/L (12-78); ALBUMIN 2.8 g/dL (3.4-5.0); ALKALINE PHOSPHATASE 84 Units/L (46-116); ASPARTATE AMINO TRANSFERASE 10 Units/L (15-37); BLOOD UREA NITROGEN 23 mg/dL (7-18); CALCIUM 8.1 mg/dL (8.5-10.1); CARBON DIOXIDE 25.9 mmol/L (21-32); CHLORIDE 110 mmol/L (98-107); COR CA(FOR HYPOALB) 9.1 mg/dL (8.5-10.1); COR NA(FOR HYPERGLY) 145 mmol/L (136-145); CREATININE 0.86 mg/dL (0.55-1.02); MAGNESIUM 1.7 mg/dL (1.7-2.9); SODIUM 144 mmol/L (136-145); TOTAL PROTEIN 6.5 g/dL (6.4-8.2); eGFR BLACK RACES > 60 (>60); eGFR NON BLACK RACES > 60 (>60)
[2017-11-07] MEDS: MORPHINE SULFATE INJ 2 MG INJ IVP PRN ×3 (06:51→23:44)
[2017-11-07] MEDS: ROCEPHIN VIAL 1 GM 1 GM in NS 100 ML IV + SPIKE MINIBAG* 100 ML IV SCH (08:02)
--- NOTE | 2017-11-07 08:27 | RAD ---
Examination: Abdomen series with PA chest History: Abdominal pain Findings: PA chest demonstrates normal heart size with clear lungs and pleural spaces. Nasogastric tu be passes below the diaphragm into the stomach. Subsequent supine and erect views of abdomen demonstrate mild gas and fluid distention of bowel, pred ominantly colon. Multiple short air-fluid levels are noted in the colon. No free air, mass or ascites is detected. Nasogastric tube is present in the stomach. There are surgical clips from cholecystecto my. Impression: 1. Negative PA chest. 2. Described intestinal gas pattern is consistent with nonobstructive process such as diarrhea, or en terocolitis. A distal obstruction is considered less likely. No complicating perforation is identifie d. Reported By:
[2017-11-07] MEDS ORDERED: ROCEPHIN 1 GM IV PREMIX IV SCH (09:00)
[2017-11-07] MEDS: DILAUDID INJ IVP PRN (10:01)
[2017-11-07] MEDS ORDERED: BENADRYL CAP/TAB 25 MG PO ONE (11:27)
[2017-11-08 06:21] LABS: BASOPHILS % (AUTO) 0.5 % (0.2-1.0); EOSINOPHILS # (AUTO) 0.1 x10^3/uL (0.0-0.2); EOSINOPHILS % (AUTO) 1.3 % (0.9-2.9); HEMATOCRIT 37.1 % (36.0-47.0); HEMOGLOBIN 12.5 g/dL (12.0-16.0); LYMPHOCYTES # (AUTO) 3.8 X10^3/uL (1.3-2.9); LYMPHOCYTES % (AUTO) 37.8 % (21.0-51.0); MEAN CORPUSCULAR HEMOGLOBIN 26.3 pg (27.0-34.0); MEAN CORPUSCULAR HGB CONC 33.7 g/dL (33.0-35.0); MEAN CORPUSCULAR VOLUME 78.2 fL (80.0-100.0); MEAN PLATELET VOLUME 10.2 fL (7.4-11.0); MONOCYTES # (AUTO) 0.5 x10^3/uL (0.3-0.8); MONOCYTES % (AUTO) 5.3 % (0.0-13.0); NEUTROPHILS # (AUTO) 5.6 x10^3/uL (2.2-4.8); NEUTROPHILS % (AUTO) 55.1 % (42.0-75.0); PLATELET COUNT 169 X10^3/uL (150.0-450.0); RED BLOOD COUNT 4.75 X10^6/uL (3.5-5.4); RED CELL DISTRIBUTION WIDTH 14.3 % (11.6-16.5); WHITE BLOOD COUNT 10.1 X10^3/uL (3.6-10.0)
[2017-11-08 06:32] LABS: ALANINE AMINOTRANSFERASE 12 Units/L (12-78); ALBUMIN 2.6 g/dL (3.4-5.0); ALKALINE PHOSPHATASE 74 Units/L (46-116); ASPARTATE AMINO TRANSFERASE 8 Units/L (15-37); BLOOD UREA NITROGEN 19 mg/dL (7-18); CALCIUM 8.3 mg/dL (8.5-10.1); CARBON DIOXIDE 31.9 mmol/L (21-32); CHLORIDE 108 mmol/L (98-107); COR CA(FOR HYPOALB) 9.4 mg/dL (8.5-10.1); CREATININE 0.78 mg/dL (0.55-1.02); SODIUM 146 mmol/L (136-145); TOTAL PROTEIN 6.1 g/dL (6.4-8.2); eGFR BLACK RACES > 60 (>60); eGFR NON BLACK RACES > 60 (>60)
[2017-11-08] MEDS: NS 1/2 + KCL 20 MEQ/L 1,000 ML IV SCH ×3 (07:47→20:37)
[2017-11-08] MEDS: ROCEPHIN VIAL 1 GM 1 GM in NS 100 ML IV + SPIKE MINIBAG* 100 ML IV SCH (07:59)
[2017-11-08] MEDS: PERCOCET TAB 5/325 MG PO PRN ×2 (13:18→20:36)
--- NOTE | 2017-11-08 13:33 | RAD ---
HISTORY: Nausea, vomiting, diarrhea Study: Small-bowel follow-through Comparison: CT abdomen pelvis 11/06/2017 Findings: Examination of the small bowel demonstrated normal caliber and transit time. There is rapid passage o f barium from the small bowel into the colon. The terminal ileum is normal. There is no evidence for complete or partial small bowel obstruction. However there is mucosal thickening, mural thickening, a nd spiculation in the descending duodenum, transverse duodenum, and proximal most jejunum. This could be on the basis of inflammatory bowel disease, infectious/inflammatory enteritis, inflammation in th e adjacent pancreas, or less likely mural hemorrhage. The remainder of the small bowel is unaffected. IMPRESSION: No evidence for partial or complete small bowel obstruction Mucosal thickening, mural thickening, and spiculation involving the duodenum and proximal most jejunu m. Some differential diagnostic possibilities given above Reported By:
--- NOTE | 2017-11-08 13:57 | PCM.PROG ---
Progress Note - Progress Note for Day of Date: 11/08/17 - Subjective Subjective: CONTINUED CO ABDOMINAL PAIN TO UPPER ABD. PT NPO THIS AM FOR SMALL BOWEL SERIES. PT DENIES ANY NAUSEA OR DIARRHEA. NG TUBE D/C LAST NIGHT - Past Medical Family Social History Past Med/Fam/Surg Hx: No changes since H&P Allergies: Allergies epinephrine [From Primatene Mist] Allergy (Verified 11/03/17 08:26) - Review of Systems ROS: No change since H&P - Vital Signs and I&O's Vital Signs: Temperature 98.0 F Pulse Rate [Right Brachial] 61 Pulse Rate [Apical] 61 Pulse Rate 92 Respiratory Rate 20 Blood Pressure [Right Arm] 171/76 Blood Pressure [Left Arm] 186/76 Blood Pressure 145/79 O2 Sat by Pulse Oximetry 97 Intake and Output: Intake & Output 11/06/17 11/07/17 11/08/17 11/09/17 11:59 11:59 11:59 11:59 Intake Total 579 2381 Output Total 2360 850 Balance -1781 1531 - Physical Exam Oriented: Normal Eyes: Normal Ear: Normal Nose: Normal Throat: Normal Respiratory: Normal : Normal Auscultation: Bowel Sounds: Decreased Tenderness: RUQ, LUQ, Epigastric Skin: Normal Musculoskeletal: Back:Lumbar Mood Description: Calm Speech Pattern: Clear, Appropriate - Laboratory and Diagnostics Result Diagrams: 11/08/17 05:21 11/08/17 05:21 Labs: 11/06/17 11:06 Stool Stool Culture - Preliminary 11/06/17 11:06 Stool - Final Laboratory WBC 10.1 X10^3/uL (3.6-10.0) H 11/08/17 05:21 RBC 4.75 X10^6/uL (3.5-5.4) 11/08/17 05:21 Hgb 12.5 g/dL (12.0-16.0) 11/08/17 05:21 Hct 37.1 % (36.0-47.0) 11/08/17 05:21 MCV 78.2 fL (80.0-100.0) L 11/08/17 05:21 MCH 26.3 pg (27.0-34.0) L 11/08/17 05:21 MCHC 33.7 g/dL (33.0-35.0) 11/08/17 05:21 RDW 14.3 % (11.6-16.5) 11/08/17 05:21 Plt Count 169 X10^3/uL (150.0-450.0) 11/08/17 05:21 MPV 10.2 fL (7.4-11.0) 11/08/17 05:21 Neut % (Auto) 55.1 % (42.0-75.0) 11/08/17 05:21 Lymph % (Auto) 37.8 % (21.0-51.0) 11/08/17 05:21 [place] % (Auto) 5.3 % (0.0-13.0) 11/08/17 05:21 Eos % (Auto) 1.3 % (0.9-2.9) 11/08/17 05:21 Baso % (Auto) 0.5 % (0.2-1.0) 11/08/17 05:21 Neut # (Auto) 5.6 x10^3/uL (2.2-4.8) H 11/08/17 05:21 Lymph # (Auto) 3.8 X10^3/uL (1.3-2.9) H 11/08/17 05:21 [place] # (Auto) 0.5 x10^3/uL (0.3-0.8) 11/08/17 05:21 Eos # (Auto) 0.1 x10^3/uL (0.0-0.2) 11/08/17 05:21 Baso # (Auto) 0.0 X10^3/uL (0.0-0.1) 11/08/17 05:21 Absolute Nucleated RBC 0.0 /100WBC 11/08/17 05:21 Sodium 146 mmol/L (136-145) H 11/08/17 05:21 Corrected Sodium TNP 11/08/17 05:21 Potassium 3.6 mmol/L (3.5-5.1) 11/08/17 05:21 Chloride 108 mmol/L (98-107) H 11/08/17 05:21 Carbon Dioxide 31.9 mmol/L (21-32) 11/08/17 05:21 BUN 19 mg/dL (7-18) H 11/08/17 05:21 Creatinine 0.78 mg/dL (0.55-1.02) 11/08/17 05:21 Est GFR (MDRD) Af Amer > 60 (>60) 11/08/17 05:21 Est GFR (MDRD) Non-Af > 60 (>60) 11/08/17 05:21 Glucose 88 mg/dL (65-99) 11/08/17 05:21 POC Glucose (mg/dL) 79 mg/dL (65-99) 11/08/17 11:32 Calcium 8.3 mg/dL (8.5-10.1) L 11/08/17 05:21 Corrected Calcium 9.4 mg/dL (8.5-10.1) 11/08/17 05:21 Magnesium 1.7 mg/dL (1.7-2.9) 11/07/17 05:10 Total Bilirubin 0.40 mg/dL (0.2-1.0) 11/08/17 05:21 AST 8 Units/L (15-37) L 11/08/17 05:21 ALT 12 Units/L (12-78) 11/08/17 05:21 Alkaline Phosphatase 74 Units/L (46-116) 11/08/17 05:21 Total Protein 6.1 g/dL (6.4-8.2) L 11/08/17 05:21 Albumin 2.6 g/dL (3.4-5.0) L 11/08/17 05:21 Globulin 3.5 g/dL (2.5-4.5) 11/08/17 05:21 Albumin/Globulin Ratio 0.7 Ratio (1.1-2.1) L 11/08/17 05:21 Amylase 58 Units/L (25-115) 11/06/17 05:28 Lipase 123 Units/L (73-393) 11/06/17 05:28 HCG, Qual Negative <10 mIU/mL 11/06/17 05:28 Specimen Type Clean catch urine 11/06/17 05:52 Urine Color Yellow (YELLOW) 11/06/17 05:52 Urine Appearance Slightly hazy (CLEAR) 11/06/17 05:52 Urine pH 6.0 (5.0 - 8.0) 11/06/17 05:52 Ur Specific [place] 1.020 (1.000-1.030) 11/06/17 05:52 Urine Protein 2+ (NEGATIVE) 11/06/17 05:52 Urine Glucose (UA) Negative (NEGATIVE) 11/06/17 05:52 Urine Ketones Negative (NEGATIVE) 11/06/17 05:52 Urine Occult Blood Negative (NEGATIVE) 11/06/17 05:52 Urine Nitrite Negative (NEGATIVE) 11/06/17 05:52 Urine Bilirubin Negative (NEGATIVE) 11/06/17 05:52 Urine Urobilinogen Normal (NORMAL) 11/06/17 05:52 Ur Leukocyte Esterase Negative (NEGATIVE) 11/06/17 05:52 Urine RBC None seen /HPF (NONE SEEN) 11/06/17 05:52 Urine WBC 0-2 /HPF (NONE SEEN) 11/06/17 05:52 Ur Squamous Epith Cells Few /HPF (NEGATIVE) 11/06/17 05:52 Urine Bacteria Trace /HPF (NEGATIVE) 11/06/17 05:52 Granular Casts Few /LPF (NEGATIVE) 11/06/17 05:52 Coarse Granular Casts Moderate /HPF (NEGATIVE) 11/06/17 05:52 Ur Culture Indicated? No/not indicated 11/06/17 05:52 Stool Description 50g,liquid,yellow 11/06/17 11:06 Stl Occult Blood (IFOB) Negative (NEGATIVE) 11/06/17 11:06 Stool for White Cells Negative (NEGATIVE) 11/06/17 11:06 Stl C. diff Tox B Gene Negative (NEGATIVE) 11/06/17 11:06 Stl C. diff [id number] Negative (NEGATIVE) 11/06/17 11:06 Cryptosporid parvum Ag Negative (NEGATIVE) 11/06/17 11:06 E. histolytica Antigen Negative (NEGATIVE) 11/06/17 11:06 Giardia lamblia Ag Negative (NEGATIVE) 11/06/17 11:06 - Plan (1) Abdominal pain Status: Acute Plan: CONTINUE PAIN AND NAUSEA CONTROL. IV HYDRATION, SMALL BOWEL SERIES ORDERED THIS AM. PLAN TO ADVANCE DIET TOLERATED. REPEAT AM LABS (2) Acute gastroenteritis Status: Acute (3) Hypokalemia Status: Acute (4) Abdominal pain, vomiting, and diarrhea Status: Acute
[2017-11-08] MEDS: NEURONTIN CAP 400 MG PO SCH ×2 (14:08→20:59)
[2017-11-08] MEDS ORDERED: PROVENTIL NEB TX 0.083% 2.5MG/ 3ML NEB SCH (17:00)
[2017-11-08] MEDS ORDERED: ZESTRIL TAB 20 MG ONE (20:27)
[2017-11-08] MEDS: NORVASC TAB 10 MG PO SCH (20:37)
[2017-11-08] MEDS: ZESTRIL TAB 20 MG PO SCH (20:37)
[2017-11-08] MEDS: SOMA TAB 350 MG PO SCH (20:37)
[2017-11-08] MEDS: PULMICORT NEB TX 0.5 MG NEB SCH (20:46)
[2017-11-08] MEDS: PROVENTIL NEB TX 0.083% 2.5MG/ 3ML NEB SCH (20:46)
[2017-11-08] MEDS ORDERED: ZANTAC PO SCH (21:00)
[2017-11-08] MEDS ORDERED: PATIENT'S HOME MEDICATION (Fluticasone-Salmeterol 250/50 1 PUFF) INH SCH (21:00)
[2017-11-08] MEDS ORDERED: AMBIEN PO SCH (21:00)
[2017-11-09] MEDS: PERCOCET TAB 5/325 MG PO PRN ×3 (05:01→15:05)
[2017-11-09] MEDS: NEURONTIN CAP 400 MG PO SCH ×2 (05:01→13:14)
[2017-11-09] MEDS: NS 1/2 + KCL 20 MEQ/L 1,000 ML IV SCH ×4 (05:02→16:28)
[2017-11-09 06:11] LABS: BASOPHILS % (AUTO) 0.5 % (0.2-1.0); EOSINOPHILS # (AUTO) 0.2 x10^3/uL (0.0-0.2); EOSINOPHILS % (AUTO) 1.7 % (0.9-2.9); HEMATOCRIT 35.1 % (36.0-47.0); HEMOGLOBIN 11.7 g/dL (12.0-16.0); LYMPHOCYTES # (AUTO) 2.5 X10^3/uL (1.3-2.9); MEAN CORPUSCULAR HEMOGLOBIN 26.1 pg (27.0-34.0); MEAN CORPUSCULAR HGB CONC 33.4 g/dL (33.0-35.0); MEAN CORPUSCULAR VOLUME 78.1 fL (80.0-100.0); MEAN PLATELET VOLUME 9.9 fL (7.4-11.0); MONOCYTES # (AUTO) 0.5 x10^3/uL (0.3-0.8); MONOCYTES % (AUTO) 5.2 % (0.0-13.0); NEUTROPHILS # (AUTO) 5.8 x10^3/uL (2.2-4.8); NEUTROPHILS % (AUTO) 64.6 % (42.0-75.0); PLATELET COUNT 163 X10^3/uL (150.0-450.0); RED CELL DISTRIBUTION WIDTH 13.9 % (11.6-16.5)
[2017-11-09 06:22] LABS: ALANINE AMINOTRANSFERASE 13 Units/L (12-78); ALBUMIN 2.5 g/dL (3.4-5.0); ALKALINE PHOSPHATASE 70 Units/L (46-116); ASPARTATE AMINO TRANSFERASE 11 Units/L (15-37); BLOOD UREA NITROGEN 16 mg/dL (7-18); CHLORIDE 110 mmol/L (98-107); COR CA(FOR HYPOALB) 9.2 mg/dL (8.5-10.1); COR NA(FOR HYPERGLY) 147 mmol/L (136-145); CREATININE 0.74 mg/dL (0.55-1.02); SODIUM 145 mmol/L (136-145); TOTAL PROTEIN 5.7 g/dL (6.4-8.2); eGFR BLACK RACES > 60 (>60); eGFR NON BLACK RACES > 60 (>60)
[2017-11-09 06:43] LABS: CARBON DIOXIDE 28.5 mmol/L (21-32)
[2017-11-09] MEDS: PULMICORT NEB TX 0.5 MG NEB SCH (08:28)
[2017-11-09] MEDS: PROVENTIL NEB TX 0.083% 2.5MG/ 3ML NEB SCH (08:28)
[2017-11-09] MEDS ORDERED: SYNTHROID 125 mcg TAB PO SCH (09:00)
[2017-11-09] MEDS ORDERED: PATIENT'S HOME MEDICATION (Citalopram Hydrobromide [Celexa] 1 TAB) PO SCH (09:00)
[2017-11-09] MEDS ORDERED: CELEXA PO SCH (09:00)
[2017-11-09] MEDS ORDERED: MICRO K EXTEN CAP 10 MEQ PO SCH (09:00)
[2017-11-09] MEDS ORDERED: CIPRO IV 400 MG PREMIX* 400 MG/200 ML IV.SOLN. IV SCH (09:00)
[2017-11-09] MEDS ORDERED: ZESTRIL TAB 20 MG ONE (09:00)
[2017-11-09] MEDS ORDERED: PATIENT'S HOME MEDICATION (Potassium Chloride [Potassium Chloride] 1 TAB) PO SCH (09:00)
[2017-11-09] MEDS: ZESTRIL TAB 20 MG PO SCH (09:04)
[2017-11-09] MEDS: ROCEPHIN VIAL 1 GM 1 GM in NS 100 ML IV + SPIKE MINIBAG* 100 ML IV SCH (09:04)
[2017-11-09] MEDS: SOMA TAB 350 MG PO SCH (09:05)
[2017-11-09] MEDS: NORVASC TAB 10 MG PO SCH (09:05)
--- NOTE | 2017-11-09 14:16 | PCM.PROG ---
Progress Note - Progress Note for Day of Date: 11/09/17 - Subjective Subjective: CONTINUED CO ABDOMINAL PAIN TO UPPER ABD, BUT IMPROVING. PT STATES SHE HAS SOME NAUSEA. PLAN TO ADVANCE DIET, CIPRO 400MG IV. REPEAT AM LABS, KUB - Past Medical Family Social History Past Med/Fam/Surg Hx: No changes since H&P Allergies: Allergies epinephrine [From Primatene Mist] Allergy (Verified 11/03/17 08:26) - Review of Systems ROS: No change since H&P - Vital Signs and I&O's Vital Signs: Temperature 98.1 F Pulse Rate [Right Brachial] 70 Pulse Rate [Apical] 64 Pulse Rate 61 Respiratory Rate 20 Blood Pressure [Right Arm] 120/58 Blood Pressure [Left Arm] 139/66 Blood Pressure 145/79 O2 Sat by Pulse Oximetry 100 Intake and Output: Intake & Output 11/07/17 11/08/17 11/09/17 11/10/17 11:59 11:59 11:59 11:59 Intake Total 579 2381 2320 Output Total 2360 850 Balance -1781 1531 2320 - Physical Exam Oriented: Normal Eyes: Normal Ear: Normal Nose: Normal Throat: Normal Respiratory: Normal Cardiovascular: Normal : Normal Auscultation: Bowel Sounds: Decreased Tenderness: RUQ, LUQ, Epigastric Skin: Normal Musculoskeletal: Back:Lumbar Mood Description: Calm Speech Pattern: Clear, Appropriate - Laboratory and Diagnostics Result Diagrams: 11/09/17 05:15 11/09/17 05:15 Labs: 11/06/17 11:06 Stool Stool Culture - Final 11/06/17 11:06 Stool - Final Laboratory WBC 9.0 X10^3/uL (3.6-10.0) 11/09/17 05:15 RBC 4.50 X10^6/uL (3.5-5.4) 11/09/17 05:15 Hgb 11.7 g/dL (12.0-16.0) L 11/09/17 05:15 Hct 35.1 % (36.0-47.0) L 11/09/17 05:15 MCV 78.1 fL (80.0-100.0) L 11/09/17 05:15 MCH 26.1 pg (27.0-34.0) L 11/09/17 05:15 MCHC 33.4 g/dL (33.0-35.0) 11/09/17 05:15 RDW 13.9 % (11.6-16.5) 11/09/17 05:15 Plt Count 163 X10^3/uL (150.0-450.0) 11/09/17 05:15 MPV 9.9 fL (7.4-11.0) 11/09/17 05:15 Neut % (Auto) 64.6 % (42.0-75.0) 11/09/17 05:15 Lymph % (Auto) 28.0 % (21.0-51.0) 11/09/17 05:15 [place] % (Auto) 5.2 % (0.0-13.0) 11/09/17 05:15 Eos % (Auto) 1.7 % (0.9-2.9) 11/09/17 05:15 Baso % (Auto) 0.5 % (0.2-1.0) 11/09/17 05:15 Neut # (Auto) 5.8 x10^3/uL (2.2-4.8) H 11/09/17 05:15 Lymph # (Auto) 2.5 X10^3/uL (1.3-2.9) 11/09/17 05:15 [place] # (Auto) 0.5 x10^3/uL (0.3-0.8) 11/09/17 05:15 Eos # (Auto) 0.2 x10^3/uL (0.0-0.2) 11/09/17 05:15 Baso # (Auto) 0.0 X10^3/uL (0.0-0.1) 11/09/17 05:15 Absolute Nucleated RBC 0.0 /100WBC 11/09/17 05:15 Sodium 145 mmol/L (136-145) 11/09/17 05:15 Corrected Sodium 147 mmol/L (136-145) H 11/09/17 05:15 Potassium 3.8 mmol/L (3.5-5.1) 11/09/17 05:15 Chloride 110 mmol/L (98-107) H 11/09/17 05:15 Carbon Dioxide 28.5 mmol/L (21-32) 11/09/17 05:15 BUN 16 mg/dL (7-18) 11/09/17 05:15 Creatinine 0.74 mg/dL (0.55-1.02) 11/09/17 05:15 Est GFR (MDRD) Af Amer > 60 (>60) 11/09/17 05:15 Est GFR (MDRD) Non-Af > 60 (>60) 11/09/17 05:15 Glucose 166 mg/dL (65-99) H 11/09/17 05:15 POC Glucose (mg/dL) 159 mg/dL (65-99) H 11/09/17 11:13 Calcium 8.0 mg/dL (8.5-10.1) L 11/09/17 05:15 Corrected Calcium 9.2 mg/dL (8.5-10.1) 11/09/17 05:15 Magnesium 1.7 mg/dL (1.7-2.9) 11/07/17 05:10 Total Bilirubin 0.20 mg/dL (0.2-1.0) 11/09/17 05:15 AST 11 Units/L (15-37) L 11/09/17 05:15 ALT 13 Units/L (12-78) 11/09/17 05:15 Alkaline Phosphatase 70 Units/L (46-116) 11/09/17 05:15 Total Protein 5.7 g/dL (6.4-8.2) L 11/09/17 05:15 Albumin 2.5 g/dL (3.4-5.0) L 11/09/17 05:15 Globulin 3.2 g/dL (2.5-4.5) 11/09/17 05:15 Albumin/Globulin Ratio 0.8 Ratio (1.1-2.1) L 11/09/17 05:15 Amylase 58 Units/L (25-115) 11/06/17 05:28 Lipase 123 Units/L (73-393) 11/06/17 05:28 HCG, Qual Negative <10 mIU/mL 11/06/17 05:28 Specimen Type Clean catch urine 11/06/17 05:52 Urine Color Yellow (YELLOW) 11/06/17 05:52 Urine Appearance Slightly hazy (CLEAR) 11/06/17 05:52 Urine pH 6.0 (5.0 - 8.0) 11/06/17 05:52 Ur Specific [place] 1.020 (1.000-1.030) 11/06/17 05:52 Urine Protein 2+ (NEGATIVE) 11/06/17 05:52 Urine Glucose (UA) Negative (NEGATIVE) 11/06/17 05:52 Urine Ketones Negative (NEGATIVE) 11/06/17 05:52 Urine Occult Blood Negative (NEGATIVE) 11/06/17 05:52 Urine Nitrite Negative (NEGATIVE) 11/06/17 05:52 Urine Bilirubin Negative (NEGATIVE) 11/06/17 05:52 Urine Urobilinogen Normal (NORMAL) 11/06/17 05:52 Ur Leukocyte Esterase Negative (NEGATIVE) 11/06/17 05:52 Urine RBC None seen /HPF (NONE SEEN) 11/06/17 05:52 Urine WBC 0-2 /HPF (NONE SEEN) 11/06/17 05:52 Ur Squamous Epith Cells Few /HPF (NEGATIVE) 11/06/17 05:52 Urine Bacteria Trace /HPF (NEGATIVE) 11/06/17 05:52 Granular Casts Few /LPF (NEGATIVE) 11/06/17 05:52 Coarse Granular Casts Moderate /HPF (NEGATIVE) 11/06/17 05:52 Ur Culture Indicated? No/not indicated 11/06/17 05:52 Stool Description 50g,liquid,yellow 11/06/17 11:06 Stl Occult Blood (IFOB) Negative (NEGATIVE) 11/06/17 11:06 Stool for White Cells Negative (NEGATIVE) 11/06/17 11:06 Stl C. diff Tox B Gene Negative (NEGATIVE) 11/06/17 11:06 Stl C. diff [id number] Negative (NEGATIVE) 11/06/17 11:06 Cryptosporid parvum Ag Negative (NEGATIVE) 11/06/17 11:06 E. histolytica Antigen Negative (NEGATIVE) 11/06/17 11:06 Giardia lamblia Ag Negative (NEGATIVE) 11/06/17 11:06 - Plan (1) Abdominal pain Status: Acute Plan: CONTINUE PAIN AND NAUSEA CONTROL. IV HYDRATION, SMALL BOWEL SERIES ORDERED THIS AM. PLAN TO ADVANCE DIET TOLERATED. REPEAT AM LABS AND KUB (2) Acute gastroenteritis Status: Acute (3) Hypokalemia Status: Acute (4) Abdominal pain, vomiting, and diarrhea Status: Acute
--- NOTE | 2017-11-09 15:23 | RAD ---
AP abdomen. Indication: Abdominal pain Comparison: 11/08/2017 Findings: Contrast is noted throughout the colon consistent a recent small bowel follow-through. The appendix opacifies normally as well. There is no discrete mass identified or filling defect within th e visualized portions of the colon. Small bowel gas pattern is unremarkable. No free air or pneumatos is. No abdominal mass identified. Previous cholecystectomy. No acute osseous abnormality. Impression: No radiographic abnormality within the abdomen or pelvis. Reported By:
[2017-11-09 16:18] VITALS: BP 148/79
== END 2017-11-09 17:30 | disposition home or self-care (01) | DRG 392 ==
LOC: ER 04:27 → MED/SURG 08:01 → OBSVTOIN 08:01
PROVIDERS: ADMIT Internal Medicine; ATTEND Internal Medicine
PROC: 0D9670Z Drainage of Stomach with Drainage Device, Via Natural or Artificial Opening (ICD-10-PCS; principal; 2017-11-06)
DX: K52.89 Other specified noninfective gastroenteritis and colitis (principal); E87.6 Hypokalemia; E86.0 Dehydration; R19.7 Diarrhea, unspecified; R10.84 Generalized abdominal pain; E11.65 Type 2 diabetes mellitus with hyperglycemia; I10 Essential (primary) hypertension; E87.2 Acidosis; R11.2 Nausea with vomiting, unspecified; H65.02 Acute serous otitis media, left ear; K21.9 Gastro-esophageal reflux disease without esophagitis; Z86.010 Personal history of colon polyps
CPT/HCPCS: 36415; 74018; 74022; 74176; 74250; 80053; 81001; 82150; 82274; 83630; 83690; 83735; 84132; 84703; 85025; 86140; 87045; 87328; 87329; 87336; 87427; 87449; 87493; 94640; 94760; 96365; 96367; 96372; 96374; 96375; 99221; 99231; 99282; 99283; 99284; A4216; A4222; J7030; S0028; J0500; J0696; J0744; J1170; J1885; J2060; J2270; J2405; J2550; J7120; J7613; J7626

== ENCOUNTER 2019-10-18 08:41 | Observation (INO) ==
--- NOTE | 2019-10-18 08:54 | DR.NAUSEAF ---
HPI Time Seen Time Seen by Provider: 10/18/19 08:50 Primary Care Physician Primary Care Physician: GT Complaints Chief Complaint Doctors Comments: A 58 y/o female presenting with nausea, vomiting and diarrhea xx 1 week. She denies travelling out of this area, or consuming poorly prepared meals. There is no fever. Episodes of G.I. loss are several per day. She had seen her PCP and got rx. for anti-emetic and something for diarrhea (she doesn't know the names). These haven't helped. At recent f/u a few days she got samples of Xirafan. She denies cramps or abdominal pain. Chief Complaint:: PT. C/O N/V/D X 1 WEEK WELL FEELING WEAK AND DEHYDRATED. PT. STATES SHE WAS IN THE HOSPITAL LAST WEEK IN [place] AND HAD A GI WORK UP PER DR. GARZA. Source History Provided: Patient Mode of Arrival Mode of Arrival: Wheelchair Timing Onset of Chief Complaint: 10/18/19 Context Recent: denies Travel and Contact Exposure Possible Ingestion: denies Unknown, ETOH, Ethylene Glycol, Isopropanol and Methanol : No History of: Abdominal Operation (GINO; Cholecystectomy) Associated Signs and Symptoms Abdominal Pain Quality: denies Aching, Burning, Cramping, Sharp, Stabbing and Other PMH PMH Past Medical History: Yes Past Medical History: Asthma, CVA, Diabetes, Dyslipidemia, GERD and Hypertension Past Surgical History: Yes Surgical History: Cholecystectomy, Hysterectomy and Thyroidectomy Family History History of Family Medical Conditions: Yes Family Medical History: Diabetes Mellitus, Cancer, [place], Coronary Artery Disease and Hypertension Social History Does patient currently use any type of tobacco product: No Have you used tobacco products in the last 12 months: No Type of Tobacco Use: None Does any household member use tobacco: No Alcohol Use: None Do you use any recreational Drugs:: No Lives With: Family Lives Where: Home Travel Risk Conronavirus risk: Travel to [facility] or contact with high risk person(s).: No Has patient experienced Coronavirus symptoms: No Infectious screening In the last 2 months have you had wt loss of >10#?: NO Have you had fever, night sweats or hemotysis?: No Have you traveled outside the country in the last 6 months?: No Isolation: Standard ROS Review of Systems Constitutional: No Symptoms Reported Eyes: No Symptoms Reported ENTM: No Symptoms Reported Respiratoy: No Symptoms Reported Cardiovascular: No Symptoms Reported Gastrointestinal/Abdominal: Diarrhea, Nausea and Vomiting Genitourinary: No Symptoms Reported Neurological: No Symptoms Reported Musculoskeletal: No Symptoms Reported Integumentary: No Symptoms Reported Hematologic/Lymphatic: No Symptoms Reported Endocrine: No Symptoms Reported Psychiatric: No Symptoms Reported All Other Systems: Reviewed and Negative PE Vital Signs Vitals: Temperature 97.4 F Pulse Rate 96 Respiratory Rate 18 Blood Pressure [Left Arm] 177/77 Blood Pressure [Right Arm] 154/86 Blood Pressure [Left Arm] 187/80 Blood Pressure 157/78 O2 Sat by Pulse Oximetry 95 General Limitations: No Limitations General Appearance: Alert, In No Apparent Distress and Obese Head Head Exam: Normal Inspection, Atraumatic and Normocephalic Eyes Eye exam: Normal Appearance, PERRL and EOMI ENT ENT Exam: Normal Exam, Normal Oropharynx, Normal External Ear Exam and Mucous Membranes Moist Neck Neck Exam: Normal Inspection, Full ROM and Trachea Midline Chest Chest Inspection: Normal Inspection and Symmetric Chest Wall Rise Respiratory Respiratory Exam: Normal Lung Sounds Bilat Cardiovascular Cardiovascular Exam: Regular Rate, Normal Rhythm, +S1 and +S2 Abdominal Exam Abdominal Exam: Normal Inspection, Normal Bowel Sounds and Soft; negative Distention, Tenderness, Guarding, Rebound, Rigidity, Dimnished Bowel Sounds, Hyperactive Bowel Sounds, Hypoactive Bowel Sounds, Organomegaly, Trauma, Incision, Ascites, Mass, Bruit, Pulsatile Mass and Hernia Rectal Rectal Exam: Deferred External Exam: Female: Deferred Extremities Extremities Exam: Normal Inspection and Full ROM Back Back Exam: Normal Inspection and Full ROM Neurologic Neurological Exam: Alert and Oriented X3 Psychiatric Psychiatric Exam: Normal Affect and Normal Mood Skin Skin Exam: Dry and Intact COURSE Reevaluation 1st: Unchanged Education/Counseling Education/Counseling: Patient, Family, Education and Counseling Educated On: Treatment, Diagnosis, Prognosis, Needs for Follow Up and Other ROR Labs Reviewed Result Diagrams: 10/18/19 09:15 10/18/19 09:15 Laboratory: WBC 12.1 X10^3/uL (3.6-10.0) H 10/18/19 09:15 RBC 5.60 X10^6/uL (3.5-5.4) H 10/18/19 09:15 Hgb 14.7 g/dL (12.0-16.0) 10/18/19 09:15 Hct 44.8 % (36.0-47.0) 10/18/19 09:15 MCV 79.9 fL (80.0-100.0) L 10/18/19 09:15 MCH 26.3 pg (27.0-34.0) L 10/18/19 09:15 MCHC 32.9 g/dL (33.0-35.0) L 10/18/19 09:15 RDW 14.3 % (11.6-16.5) 10/18/19 09:15 Plt Count 239 X10^3/uL (150.0-450.0) 10/18/19 09:15 MPV 9.7 fL (7.4-11.0) 10/18/19 09:15 Neut % (Auto) 82.2 % (42.0-75.0) H 10/18/19 09:15 Lymph % (Auto) 11.9 % (21.0-51.0) L 10/18/19 09:15 [place] % (Auto) 5.1 % (0.0-13.0) 10/18/19 09:15 Eos % (Auto) 0.2 % (0.9-2.9) L 10/18/19 09:15 Baso % (Auto) 0.6 % (0.2-1.0) 10/18/19 09:15 Neut # (Auto) 9.9 x10^3/uL (2.2-4.8) H 10/18/19 09:15 Lymph # (Auto) 1.4 X10^3/uL (1.3-2.9) 10/18/19 09:15 [place] # (Auto) 0.6 x10^3/uL (0.3-0.8) 10/18/19 09:15 Eos # (Auto) 0.0 x10^3/uL (0.0-0.2) 10/18/19 09:15 Baso # (Auto) 0.1 X10^3/uL (0.0-0.1) 10/18/19 09:15 Absolute Nucleated RBC 0.0 /100WBC 10/18/19 09:15 Sodium 135 mmol/L (136-145) L 10/18/19 09:15 Corrected Sodium 138 mmol/L (136-145) 10/18/19 09:15 Potassium 3.4 mmol/L (3.5-5.1) L 10/18/19 09:15 Chloride 96 mmol/L (98-107) L 10/18/19 09:15 Carbon Dioxide 31.9 mmol/L (21-32) 10/18/19 09:15 BUN 47 mg/dL (7-18) H 10/18/19 09:15 Creatinine 1.42 mg/dL (0.55-1.02) H 10/18/19 09:15 Est GFR (MDRD) Af Amer 49 (>60) L 10/18/19 09:15 Est GFR (MDRD) Non-Af 41 (>60) L 10/18/19 09:15 Glucose 223 mg/dL (65-99) H 10/18/19 09:15 Calcium 9.4 mg/dL (8.5-10.1) 10/18/19 09:15 Corrected Calcium TNP 10/18/19 09:15 Total Bilirubin 0.40 mg/dL (0.2-1.0) 10/18/19 09:15 AST 17 Units/L (15-37) 10/18/19 09:15 ALT 17 Units/L (12-78) 10/18/19 09:15 Alkaline Phosphatase 88 Units/L (46-116) 10/18/19 09:15 Total Protein 8.1 g/dL (6.4-8.2) 10/18/19 09:15 Albumin 3.6 g/dL (3.4-5.0) 10/18/19 09:15 Globulin 4.5 g/dL (2.5-4.5) 10/18/19 09:15 Albumin/Globulin Ratio 0.8 Ratio (1.1-2.1) L 10/18/19 09:15 Opioid Opioid Risk Tool Age (Ye box if 16-45): No History of Preadolescent Sexual Abuse: No Total: 0 Total Score Risk Category: Low Risk Copyright: Nicho COOPER predicting aberrant behaviors Diagnosis Discharge Problem: Gastroenteritis, Hypokalemia, Acute dehydration Instructions Instructions: Hypokalemia Viral Gastroenteritis, Adult Forms: Excuse From Work Patient Portal ADDITIONAL NOTES Additional Notes Additional Notes: Name: SCARLETBLANK : 1960 Sex: F Location: ER Order Number(s): [id number] Procedure(s):ACUTE ABDOMEN SERIES Ordering Physician: EUGENIO WINKLER Primary Care: FABRICE,None Service Date: 10/18/19 Service Time: 916 HISTORY Nausea vomiting STUDY Portable abdomen with chest, four views COMPARISON CT abdomen 05/28/2018 FINDINGS Portable AP chest is normal. Additional supine and upright views are technically limited by patient size and nonstandard technical factors. There is no evidence for bowel obstruction or perforation, mass formation or large volume ascites. No obvious calcification is noted in the abdomen. Surgical clips right upper quadrant. IMPRESSION No acute chest or abdominal abnormality noted. See above description. Electronically signed by: WALKER GRAYSON (Oct 18, 2019 09:47:26)
[2019-10-18] MEDS ORDERED: NS 100 ML IV 100 ML IV ONE (08:58)
[2019-10-18] MEDS ORDERED: ZOFRAN INJ 4 MG VIAL IVP ONE (08:58)
[2019-10-18] MEDS ORDERED: ZOFRAN INJ 4 MG VIAL ONE (09:04)
[2019-10-18] MEDS ORDERED: NS 1000 ML 1,000 ML ONE (09:04)
[2019-10-18] MEDS ORDERED: NS 1000 ML 1,000 ML IV ONE (09:22)
[2019-10-18 09:30] LABS: BASOPHILS # (AUTO) 0.1 X10^3/uL (0.0-0.1); BASOPHILS % (AUTO) 0.6 % (0.2-1.0); EOSINOPHILS % (AUTO) 0.2 % (0.9-2.9); HEMATOCRIT 44.8 % (36.0-47.0); HEMOGLOBIN 14.7 g/dL (12.0-16.0); LYMPHOCYTES # (AUTO) 1.4 X10^3/uL (1.3-2.9); LYMPHOCYTES % (AUTO) 11.9 % (21.0-51.0); MEAN CORPUSCULAR HEMOGLOBIN 26.3 pg (27.0-34.0); MEAN CORPUSCULAR HGB CONC 32.9 g/dL (33.0-35.0); MEAN CORPUSCULAR VOLUME 79.9 fL (80.0-100.0); MEAN PLATELET VOLUME 9.7 fL (7.4-11.0); MONOCYTES # (AUTO) 0.6 x10^3/uL (0.3-0.8); MONOCYTES % (AUTO) 5.1 % (0.0-13.0); NEUTROPHILS # (AUTO) 9.9 x10^3/uL (2.2-4.8); NEUTROPHILS % (AUTO) 82.2 % (42.0-75.0); PLATELET COUNT 239 X10^3/uL (150.0-450.0); RED CELL DISTRIBUTION WIDTH 14.3 % (11.6-16.5); WHITE BLOOD COUNT 12.1 X10^3/uL (3.6-10.0)
[2019-10-18 09:39] LABS: ALANINE AMINOTRANSFERASE 17 Units/L (12-78); ALBUMIN 3.6 g/dL (3.4-5.0); ALKALINE PHOSPHATASE 88 Units/L (46-116); ASPARTATE AMINO TRANSFERASE 17 Units/L (15-37); BLOOD UREA NITROGEN 47 mg/dL (7-18); CALCIUM 9.4 mg/dL (8.5-10.1); CARBON DIOXIDE 31.9 mmol/L (21-32); CHLORIDE 96 mmol/L (98-107); COR NA(FOR HYPERGLY) 138 mmol/L (136-145); CREATININE 1.42 mg/dL (0.55-1.02); SODIUM 135 mmol/L (136-145); TOTAL PROTEIN 8.1 g/dL (6.4-8.2); eGFR NON BLACK RACES 41 (>60)
--- NOTE | 2019-10-18 09:49 | RAD ---
HISTORYNausea vomitingSTUDYPortable abdomen with chest, four viewsCOMPARISONCT abdomen 05/28/2018FINDINGSPortable AP chest is normal. Additional supine and upright views are technically limited by patient size and nonstandard technical factors. There is no evidence for bowel obstruction or perforation, mass formation or large volume ascites. No obvious calcification is noted in the abdomen. Surgical clips right upper quadrant.IMPRESSIONNo acute chest or abdominal abnormality noted. See above description.Electronically signed by: WALKER GRAYSON (Oct 18, 2019 09:47:26)
[2019-10-18] MEDS ORDERED: POTASSIUM CHLORIDE INJ 20 MEQ VIAL IV ONE (10:25)
[2019-10-18] MEDS ORDERED: HumuLIN R SC PRN (10:46)
[2019-10-18 10:53] LABS: BILIRUBIN,URINE NEGATIVE (NEGATIVE); BLOOD/HEMOGLOBIN,URINE NEGATIVE (NEGATIVE); GLUCOSE, URINE NEGATIVE (NEGATIVE); KETONES,URINE NEGATIVE (NEGATIVE); LEUKOCYTE ESTERASE ,URINE NEGATIVE (NEGATIVE); NITRITES,URINE NEGATIVE (NEGATIVE); PROTEIN,URINE 2+ (NEGATIVE); UROBILINOGEN,URINE NORMAL (NORMAL)
[2019-10-18 11:02] LABS: AMORPHOUS SEDIMENT,UR 1+ /HPF (NEGATIVE); APPEARANCE,URINE CLEAR (CLEAR); BACTERIA,URINE TRACE /HPF (NEGATIVE); COLOR,URINE YELLOW (YELLOW); MUCUS,URINE FEW /HPF (NEGATIVE); RBC,URINE 0-2 /HPF (0-3); SQUAMOUS EPITHELIAL CELL,UR RARE /HPF (NEGATIVE)
[2019-10-18] MEDS: NS 1000 ML 1,000 ML IV SCH ×2 (11:20→20:25)
[2019-10-18 11:36] LABS: CRYPTOSPORIDIUM PARVUM ANTIGEN NEGATIVE (NEGATIVE); GIARDIA LAMBLIA ANTIGEN NEGATIVE (NEGATIVE)
[2019-10-18] MEDS ORDERED: POTASSIUM CHL 40 MEQ/NS 0.45% 500 ML IV PRN (11:47)
[2019-10-18] MEDS ORDERED: K-RIDER 10 MEQ/NS 100 ML 10 MEQ/100 ML BAG IV PRN (11:47)
[2019-10-18] MEDS ORDERED: MICRO K EXTEN CAP 10 MEQ PO PRN (11:47)
[2019-10-18] MEDS ORDERED: K-DUR TAB 20 MEQ PO PRN (11:47)
[2019-10-18] MEDS ORDERED: POTASSIUM CHLORIDE LIQ 20 MEQ UDC PO PRN (11:47)
[2019-10-18] MEDS ORDERED: POTASSIUM CHL 60 MEQ/NS 0.45% 500 ML IV PRN (11:47)
[2019-10-18] MEDS ORDERED: KLOR-CON PO PRN (11:47)
[2019-10-18 14:51] VITALS: BMI 31.8
[2019-10-18] MEDS: ZOFRAN INJ 4 MG VIAL IVP PRN ×2 (17:16→22:46)
[2019-10-19] MEDS: PEPCID 20 MG IV PREMIX* 20 MG/50 ML BAG IV SCH ×3 (02:00→20:18)
[2019-10-19] MEDS ORDERED: PEPCID 20 MG IV PREMIX* 20 MG/50 ML BAG IV ONE (02:03)
[2019-10-19] MEDS: NS 1000 ML 1,000 ML IV SCH ×4 (04:23→20:18)
[2019-10-19 05:23] LABS: BASOPHILS # (AUTO) 0.1 X10^3/uL (0.0-0.1); BASOPHILS % (AUTO) 0.4 % (0.2-1.0); EOSINOPHILS % (AUTO) 0.2 % (0.9-2.9); HEMATOCRIT 40.1 % (36.0-47.0); HEMOGLOBIN 13.1 g/dL (12.0-16.0); LYMPHOCYTES # (AUTO) 1.6 X10^3/uL (1.3-2.9); LYMPHOCYTES % (AUTO) 12.1 % (21.0-51.0); MEAN CORPUSCULAR HEMOGLOBIN 26.1 pg (27.0-34.0); MEAN CORPUSCULAR HGB CONC 32.6 g/dL (33.0-35.0); MEAN CORPUSCULAR VOLUME 80.2 fL (80.0-100.0); MEAN PLATELET VOLUME 9.9 fL (7.4-11.0); MONOCYTES # (AUTO) 0.7 x10^3/uL (0.3-0.8); MONOCYTES % (AUTO) 5.2 % (0.0-13.0); NEUTROPHILS # (AUTO) 10.6 x10^3/uL (2.2-4.8); NEUTROPHILS % (AUTO) 82.1 % (42.0-75.0); PLATELET COUNT 201 X10^3/uL (150.0-450.0); RED CELL DISTRIBUTION WIDTH 14.7 % (11.6-16.5); WHITE BLOOD COUNT 12.9 X10^3/uL (3.6-10.0)
[2019-10-19 05:45] LABS: ALANINE AMINOTRANSFERASE 13 Units/L (12-78); ALBUMIN 2.9 g/dL (3.4-5.0); ALKALINE PHOSPHATASE 71 Units/L (46-116); ASPARTATE AMINO TRANSFERASE 9 Units/L (15-37); BLOOD UREA NITROGEN 34 mg/dL (7-18); CALCIUM 8.5 mg/dL (8.5-10.1); CARBON DIOXIDE 23.9 mmol/L (21-32); CHLORIDE 105 mmol/L (98-107); COR CA(FOR HYPOALB) 9.4 mg/dL (8.5-10.1); COR NA(FOR HYPERGLY) 141 mmol/L (136-145); CREATININE 1.05 mg/dL (0.55-1.02); SODIUM 139 mmol/L (136-145); TOTAL PROTEIN 6.7 g/dL (6.4-8.2); eGFR NON BLACK RACES 58 (>60)
--- NOTE | 2019-10-19 10:46 | DR.H&P ---
H&P - History & Physical for Day of: H&P Date: 10/18/19 - Chief Complaint Chief Complaint: NAUSEA, VOMITING, DIARRHEA - History of Present Illness History of Present Illness: IS A 58 YEAR OLD PATIENT OF OURS WHO PRESENTED TO THE ER WITH COMPLAINTS OF NAUSEA, VOMITING, AND DIARRHEA X 1 WEEK. SHE DENIES TRAVELING OR POOR PREPPED MEALS. SHE DENIES FEVER. SHE WAS RECENTLY TREATED AT THE [facility] AND HAD A GI WORK UP PER . ON ARRIVAL TO THE HOSPITAL, VITALS WERE 97.4-96-18-95%-157/78. LABS WERE OBTAINED. ABNORMAL LAB VALUES INCLUDE THE FOLLOWING: WBC 12.1, RBC 5.60, SODIUM 135, POTASSIUM 3.4, CHLORIDE 96, BUN 47, CREATININE 1.42, GLUCOSE 223. URINALYSIS IS UNREMARKABLE. STOOL STUDIES WERE OBTAINED AND ARE NEGATIVE FOR WBC, C-DIFF, H-PYLORI. A STOOL CULTURE WAS SET UP. AN ABDOMEN XRAY WAS OBTAINED AND REVEALED: Portable AP chest is normal. Additional supine and upright views are technically limited by patient size and nonstandard technical factors. There is no evidence for bowel obstruction or perforation, mass formation or large volume ascites. No obvious calcification is noted in the abdomen. Surgical clips right upper quadrant. SHE WAS GIVEN A NORMAL SALINE BOLUS AND ZOFRAN 4MG IV X 1 DOSE. SHE WAS ADMITTED FOR FURTHER EVALUATION AND TREATMENT OF GASTROENTERITIS, DEHYDRATION, HYPOKALEMIA, AND DIABETES. SHE WAS STARTED ON NS AT 100 ML/HR, IV CIPRO, QUESTRAN POWDER, IV FLAGYL, PEPCID IV, PROTONIX IV, HUMULIN R SLIDING SCALE, AND THE POTASSIUM AND MAGNESIUM PROTOCOLS. OTHERWISE, WE PLAN TO FOLLOW UP WITH AM LABS AND CONTINUE TO MONITOR. - Past Medical History Past Medical History: Hypertension, Dyslipidemia, Diabetes, CVA, Asthma, GERD - Past Surgical History Surgical History: Cholecystectomy, Hysterectomy, Thyroidectomy - Family History Family Medical History: Diabetes Mellitus, Cancer, [place], Coronary Artery Disease, Hypertension - Social History Does patient currently use any type of tobacco product: No Have you used tobacco products in the last 12 months: No Type of Tobacco Use: None Does any household member use tobacco: No Alcohol Use: None Drug Use: None - Medications Home Medications: epinephrine [From Primatene Mist] Allergy (Verified 06/12/19 21:20) CONTINUE taking the following medications amlodipine 5 mg PO DAILY 10/19/19 [History] diphenoxylate-atropine [Lomotil] 1 tab PO TID PRN 10/19/19 [History] hydrocodone-acetaminophen 1 tab PO Q8H PRN 10/19/19 [History] lisinopril 20 mg PO BID 10/19/19 [History] metoclopramide HCl 10 mg PO QACHS 10/19/19 [History] - Review of Systems Constitutional: Weakness Eyes: No Symptoms Reported ENT: No Symptoms Reported Respiratory: No Symptoms Reported Cardiovascular: No Symptoms Reported Gastrointestinal: See HPI, Nausea, Vomiting, Abdominal Pain, Diarrhea Genitourinary: No Symptoms Reported Musculoskeletal: No Symptoms Reported Skin: No Symptoms Reported Neurological: No Symptoms Reported, Weakness - Physical Exam Vital Signs: Temperature 97.5 F Pulse Rate [Right Brachial] 59 Pulse Rate 96 Respiratory Rate 17 Blood Pressure [Left Arm] 130/75 Blood Pressure [Right Arm] 167/74 Blood Pressure [Left Arm] 187/80 Blood Pressure 157/78 O2 Sat by Pulse Oximetry 99 Oriented: Normal Eyes: Normal Ear: Normal Nose: Normal Throat: Normal Respiratory: Diminished Throughout Cardiovascular: Normal. negative: S3, S4, Murmur : Normal Auscultation: Bowel Sounds: Normal Palpation: Normal Tenderness: Normal Skin: Normal Musculoskeletal: Normal Psychiatric: Normal Mood Description: Calm Affect: Normal Speech Pattern: Clear - Assessment/Plan (1) Gastroenteritis Status: Acute Plan: ADMIT, NS AT 100 ML/HR, IV CIPRO, QUESTRAN POWDER, IV FLAGYL, PEPCID IV, PROTONIX IV, HUMULIN R SLIDING SCALE, AND THE POTASSIUM AND MAGNESIUM PROTOCOLS (2) Dehydration Status: Acute Plan: NS AT 100 ML/HR (3) Diabetes Qualifiers: Diabetes mellitus type: type 2 Diabetes mellitus terminal carman insulin use: unspecified terminal carman insulin use status Diabetes mellitus complication status: without complication Qualified Code(s): E11.9 - Type 2 diabetes mellitus without complications Status: Acute Plan: HUMULIN R SLIDING SCALE (4) Hypokalemia Status: Acute - Allergies Allergies/Adverse Reactions: Allergies Allergy/AdvReac Type Severity Reaction Status Date / Time epinephrine Allergy Verified 06/12/19 21:20 [From Primatene Mist]
[2019-10-19] MEDS: CIPRO IV 400 MG PREMIX* 400 MG/200 ML IV.SOLN. IV SCH ×2 (12:34→20:18)
[2019-10-19] MEDS: QUESTRAN POWDER FOR ORAL SUSP PO SCH (12:35)
[2019-10-19] MEDS: FLAGYL IV PREMIX 500 MG BAG 500 MG/100 ML BAG IV SCH ×2 (13:59→18:51)
[2019-10-19] MEDS: MAALOX or MYLANTA PO PRN ×2 (14:18→18:13)
[2019-10-19] MEDS: ZOFRAN INJ 4 MG VIAL IVP PRN (14:18)
[2019-10-20] MEDS: FLAGYL IV PREMIX 500 MG BAG 500 MG/100 ML BAG IV SCH ×2 (02:09→12:00)
[2019-10-20 06:03] LABS: BASOPHILS # (AUTO) 0.1 X10^3/uL (0.0-0.1); BASOPHILS % (AUTO) 0.7 % (0.2-1.0); EOSINOPHILS # (AUTO) 0.1 x10^3/uL (0.0-0.2); EOSINOPHILS % (AUTO) 1.2 % (0.9-2.9); HEMATOCRIT 36.8 % (36.0-47.0); LYMPHOCYTES # (AUTO) 2.7 X10^3/uL (1.3-2.9); LYMPHOCYTES % (AUTO) 35.4 % (21.0-51.0); MEAN CORPUSCULAR HEMOGLOBIN 26.1 pg (27.0-34.0); MEAN CORPUSCULAR HGB CONC 32.6 g/dL (33.0-35.0); MEAN CORPUSCULAR VOLUME 80.1 fL (80.0-100.0); MEAN PLATELET VOLUME 9.8 fL (7.4-11.0); MONOCYTES # (AUTO) 0.5 x10^3/uL (0.3-0.8); MONOCYTES % (AUTO) 6.1 % (0.0-13.0); NEUTROPHILS # (AUTO) 4.3 x10^3/uL (2.2-4.8); NEUTROPHILS % (AUTO) 56.6 % (42.0-75.0); PLATELET COUNT 184 X10^3/uL (150.0-450.0); RED BLOOD COUNT 4.59 X10^6/uL (3.5-5.4); RED CELL DISTRIBUTION WIDTH 14.5 % (11.6-16.5); WHITE BLOOD COUNT 7.6 X10^3/uL (3.6-10.0)
[2019-10-20 06:28] LABS: ALANINE AMINOTRANSFERASE 13 Units/L (12-78); ALBUMIN 2.7 g/dL (3.4-5.0); ALKALINE PHOSPHATASE 61 Units/L (46-116); ASPARTATE AMINO TRANSFERASE 16 Units/L (15-37); BLOOD UREA NITROGEN 17 mg/dL (7-18); CALCIUM 8.7 mg/dL (8.5-10.1); CARBON DIOXIDE 27.6 mmol/L (21-32); CHLORIDE 107 mmol/L (98-107); COR CA(FOR HYPOALB) 9.7 mg/dL (8.5-10.1); CREATININE 0.89 mg/dL (0.55-1.02); SODIUM 142 mmol/L (136-145); eGFR NON BLACK RACES > 60 (>60)
[2019-10-20] MEDS ORDERED: TYLENOL 325 MG TAB PO PRN (07:45)
[2019-10-20] MEDS: MAGNESIUM SULFATE 1 GRAM/100 mL PREMIX 1 GM/100 ML BAG IV PRN ×2 (08:30→13:12)
[2019-10-20] MEDS: CIPRO IV 400 MG PREMIX* 400 MG/200 ML IV.SOLN. IV SCH (08:37)
[2019-10-20] MEDS: PEPCID 20 MG IV PREMIX* 20 MG/50 ML BAG IV SCH (08:38)
[2019-10-20] MEDS: ZOFRAN INJ 4 MG VIAL IVP PRN (08:38)
[2019-10-20] MEDS: NS 1000 ML 1,000 ML IV SCH ×2 (08:46→12:06)
[2019-10-20] MEDS: QUESTRAN POWDER FOR ORAL SUSP PO SCH (10:01)
[2019-10-20 12:18] VITALS: BP 187/91
--- NOTE | 2019-11-17 10:24 | PCM.PROG ---
Progress Note - Progress Note for Day of Date of Exam: 10/19/19 - Subjective Subjective: IS BEING TREATED FOR GASTROENTERITIS, DEHYDRATION, HYPOKALEMIA, AND DIABETES. TODAY, SHE IS ALERT AND ORIENTED, LYING IN BED ON MORNING ROUNDS. SHE CONTINUES WITH COMPLAINTS OF NAUSEA AND DIARRHEA. SHE REPORTS THAT DIARRHEA HAS SLIGHTLY DECREASED. ON EXAMINATION, HEART IS REGUALR I N RATE AND RHYTHM. BILATERAL LUNGS ARE NOTED WITH DIMINISHED LUNG SOUNDS THROUGHOUT. ABDOMEN IS ROUND, SOFT, AND NOTED WITH DIFFUSE TENDERNESS. HYPERACTIVE BOWEL SOUNDS ARE NOTED IN ALL QUADRNATS. HER VITALS THIS MORNING ARE: 97.5-59-17-99%-167/74. LABS WERE OBTAINED. [facility] LAB VALUES INCLUDE THE FOLLOWING: WBC 12.9, BUN 34, CREATININE 1.05, GLUCOSE 181, AST 9, ALBUMIN 2.9. STOOL STUDIES ARE NEGATIVE. A STOOL CULTURE IS PENDING. SHE IS CURRENTLY RECEIVING NS AT 100 ML/HR, IV CIPRO, QUESTRAN POWDER, IV FLAGYL, PEPCID IV, PROTONIX IV, HUMULIN R SLIDING SCALE, AND THE POTASSIUM AND MAGNESIUM PROTOCOLS. WE WILL CONTINUE WITH CURRENT PLAN OF CARE TODAY. OTHERWISE, WE WILL FOLLOW UP WITH AM LABS AND CONTINUE TO MONITOR. - Past Medical Family Social History Past Med/Fam/Surg Hx: No changes since H&P Allergies: Allergies epinephrine [From Primatene Mist] Allergy (Verified 06/12/19 21:20) - Review of Systems ROS: No change since H&P - Vital Signs and I&O's Vital Signs: Temperature 98.0 F Pulse Rate [Right Brachial] 65 Pulse Rate 96 Respiratory Rate 20 Blood Pressure [Left Arm] 112/59 Blood Pressure [Right Arm] 187/91 Blood Pressure [Left Arm] 187/80 Blood Pressure 157/78 O2 Sat by Pulse Oximetry 97 - Physical Exam Oriented: Normal Eyes: Normal Ear: Normal Nose: Normal Throat: Normal Respiratory: Generalized, Diminished Cardiovascular: Normal. negative: S3, S4, Murmur : Normal Auscultation: Bowel Sounds: Normal Palpation: Normal Tenderness: Diffuse, Mild Skin: Normal Musculoskeletal: Normal Psychiatric: Normal Mood Description: Calm Affect: Normal Speech Pattern: Clear, Appropriate - Laboratory and Diagnostics Result Diagrams: 10/20/19 04:41 10/20/19 04:41 Labs: 10/18/19 10:26 Stool Stool Culture - Final 10/18/19 10:26 Stool - Final Laboratory WBC 7.6 X10^3/uL (3.6-10.0) 10/20/19 04:41 RBC 4.59 X10^6/uL (3.5-5.4) 10/20/19 04:41 Hgb 12.0 g/dL (12.0-16.0) 10/20/19 04:41 Hct 36.8 % (36.0-47.0) 10/20/19 04:41 MCV 80.1 fL (80.0-100.0) 10/20/19 04:41 MCH 26.1 pg (27.0-34.0) L 10/20/19 04:41 MCHC 32.6 g/dL (33.0-35.0) L 10/20/19 04:41 RDW 14.5 % (11.6-16.5) 10/20/19 04:41 Plt Count 184 X10^3/uL (150.0-450.0) 10/20/19 04:41 MPV 9.8 fL (7.4-11.0) 10/20/19 04:41 Neut % (Auto) 56.6 % (42.0-75.0) 10/20/19 04:41 Lymph % (Auto) 35.4 % (21.0-51.0) 10/20/19 04:41 Yancey % (Auto) 6.1 % (0.0-13.0) 10/20/19 04:41 Eos % (Auto) 1.2 % (0.9-2.9) 10/20/19 04:41 Baso % (Auto) 0.7 % (0.2-1.0) 10/20/19 04:41 Neut # (Auto) 4.3 x10^3/uL (2.2-4.8) 10/20/19 04:41 Lymph # (Auto) 2.7 X10^3/uL (1.3-2.9) 10/20/19 04:41 Yancey # (Auto) 0.5 x10^3/uL (0.3-0.8) 10/20/19 04:41 Eos # (Auto) 0.1 x10^3/uL (0.0-0.2) 10/20/19 04:41 Baso # (Auto) 0.1 X10^3/uL (0.0-0.1) 10/20/19 04:41 Absolute Nucleated RBC 0.0 /100WBC 10/20/19 04:41 Sodium 142 mmol/L (136-145) 10/20/19 04:41 Corrected Sodium TNP 10/20/19 04:41 Potassium 3.4 mmol/L (3.5-5.1) L 10/20/19 04:41 Chloride 107 mmol/L (98-107) 10/20/19 04:41 Carbon Dioxide 27.6 mmol/L (21-32) 10/20/19 04:41 BUN 17 mg/dL (7-18) 10/20/19 04:41 Creatinine 0.89 mg/dL (0.55-1.02) 10/20/19 04:41 Est GFR (MDRD) Af Amer > 60 (>60) 10/20/19 04:41 Est GFR (MDRD) Non-Af > 60 (>60) 10/20/19 04:41 Glucose 107 mg/dL (65-99) H 10/20/19 04:41 POC Glucose (mg/dL) 160 mg/dL (65-99) H 10/20/19 11:04 Calcium 8.7 mg/dL (8.5-10.1) 10/20/19 04:41 Corrected Calcium 9.7 mg/dL (8.5-10.1) 10/20/19 04:41 Magnesium 1.8 mg/dL (1.7-2.9) 10/20/19 04:41 Total Bilirubin 0.30 mg/dL (0.2-1.0) 10/20/19 04:41 AST 16 Units/L (15-37) 10/20/19 04:41 ALT 13 Units/L (12-78) 10/20/19 04:41 Alkaline Phosphatase 61 Units/L (46-116) 10/20/19 04:41 Total Protein 6.0 g/dL (6.4-8.2) L 10/20/19 04:41 Albumin 2.7 g/dL (3.4-5.0) L 10/20/19 04:41 Globulin 3.3 g/dL (2.5-4.5) 10/20/19 04:41 Albumin/Globulin Ratio 0.8 Ratio (1.1-2.1) L 10/20/19 04:41 Specimen Type Clean catch urine 10/18/19 10:26 Urine Color Yellow (YELLOW) 10/18/19 10:26 Urine Appearance Clear (CLEAR) 10/18/19 10:26 Urine pH 5.0 (5.0 - 8.0) 10/18/19 10:26 Ur Specific Peterson 1.025 (1.000-1.030) 10/18/19 10:26 Urine Protein 2+ (NEGATIVE) 10/18/19 10:26 Urine Glucose (UA) Negative (NEGATIVE) 10/18/19 10:26 Urine Ketones Negative (NEGATIVE) 10/18/19 10:26 Urine Occult Blood Negative (NEGATIVE) 10/18/19 10:26 Urine Nitrite Negative (NEGATIVE) 10/18/19 10:26 Urine Bilirubin Negative (NEGATIVE) 10/18/19 10:26 Urine Urobilinogen Normal (NORMAL) 10/18/19 10:26 Ur Leukocyte Esterase Negative (NEGATIVE) 10/18/19 10:26 Urine RBC 0-2 /HPF (0-3) 10/18/19 10:26 Urine WBC 0-2 /HPF (0-5) 10/18/19 10:26 Ur Squamous Epith Cells Rare /HPF (NEGATIVE) 10/18/19 10:26 Amorphous Sediment 1+ /HPF (NEGATIVE) 10/18/19 10:26 Urine Bacteria Trace /HPF (NEGATIVE) 10/18/19 10:26 Urine Mucus Few /HPF (NEGATIVE) 10/18/19 10:26 Ur Culture Indicated? No/not indicated 10/18/19 10:26 Stool Description 100g brown liquid 10/18/19 10:26 Stool for White Cells Negative (NEGATIVE) 10/18/19 10:26 Stl C. diff Tox B Gene Negative (NEGATIVE) 10/18/19 10:26 Stl C. diff [id number] Negative (NEGATIVE) 10/18/19 10:26 Stool H. pylori Ag Negative (NEGATIVE) 10/18/19 10:26 Cryptosporid parvum Ag Negative (NEGATIVE) 10/18/19 10:26 Giardia lamblia Ag Negative (NEGATIVE) 10/18/19 10:26 - Plan (1) Gastroenteritis Status: Acute Plan: NS AT 100 ML/HR, IV CIPRO, QUESTRAN POWDER, IV FLAGYL, PEPCID IV, PROTONIX IV, HUMULIN R SLIDING SCALE, AND THE POTASSIUM AND MAGNESIUM PROTOCOLS (2) Dehydration Status: Acute Plan: NS AT 100 ML/HR (3) Diabetes Status: Acute Qualifiers: Diabetes mellitus type: type 2 Diabetes mellitus extermination supervisor insulin use: unspecified extermination supervisor insulin use status Diabetes mellitus complication status: without complication Qualified Code(s): E11.9 - Type 2 diabetes mellitus without complications Plan: HUMULIN R SLIDING SCALE (4) Hypokalemia Status: Acute
== END 2019-10-20 15:45 | disposition home or self-care (01) ==
LOC: ER 08:44 → MED/SURG 08:44
PROVIDERS: ADMIT Internal Medicine; ATTEND Internal Medicine
DX: K21.9 Gastro-esophageal reflux disease without esophagitis; K52.89 Other specified noninfective gastroenteritis and colitis; Z79.899 Other long term (current) drug therapy; E78.2 Mixed hyperlipidemia; R13.11 Dysphagia, oral phase; E87.6 Hypokalemia; E11.65 Type 2 diabetes mellitus with hyperglycemia; I10 Essential (primary) hypertension; E86.0 Dehydration; R26.89 Other abnormalities of gait and mobility
CPT/HCPCS: 36415; 74022; 80053; 81001; 83630; 83735; 85025; 87045; 87328; 87329; 87338; 87427; 87449; 87493; 87899; 92526; 92610; 96360; 96361; 96365; 96374; 97161; 99284; A4222; G0378; J0744; J2405; J3475; J3490; J7030; S0028; S0030